=== PATIENT | male | born 1960 | race Caucasian/White ===

== ENCOUNTER 2020-05-08 16:11 | Inpatient (IN) | payer MEDICARE ==
[~2020-05-08] VITALS: Ht 172.7 cm; Wt 92.7 kg
[2020-05-08] MEDS ORDERED: ONDANSETRON 4 MG/2 ML (SDV) Z0FRAN IV PRN (17:15)
[2020-05-08] MEDS ORDERED: guaiFENesin SYRUP 100 MG/5 ML 10 ML (ROBITUSSIN SF) PO PRN (17:15)
[2020-05-08] MEDS ORDERED: CATHETER FLUSH 10 ML SYR IV PRN (20:15)
[2020-05-08] MEDS ORDERED: diphenhydrAMINE 50 MG/ML INJ (BENADRYL) IM ONE (21:30)
[2020-05-08] MEDS ORDERED: ACETAMINOPHEN 325 MG TABLET PO ONE (21:30)
--- NOTE | 2020-05-08 22:07 | Diagnostic Imaging Report ---
INDICATION: Pneumonia, Covid positive Frontal chest obtained at 09:37 p.m. There is no previous study for comparison. There is mild cardiomegaly. There is extensive infiltrate in the right upper lobe and midlung and base as well as milder infiltrate in the left base. There is no pneumothorax or pleural fluid. IMPRESSION: Cardiomegaly. Extensive right-sided infiltrates are present with milder left basilar infiltrate, compatible with pneumonia. Dictated by: Dictated on workstation # [id number]
[2020-05-08] MEDS: guaiFENesin/CODEINE (ROBITUSSIN AC) 10ML UDC PO PRN (22:45)
[2020-05-08 22:47] LABS: BASOPHILS % (AUTO) 0 % (0-10); EOSINOPHILS % (AUTO) 0 % (0-10); HEMATOCRIT 35 % (40-54); HEMOGLOBIN 11.6 g/dL (13.3-17.7); LYMPHOCYTES # (AUTO) 0.4 10^3/uL (1.0-4.0); LYMPHOCYTES % (AUTO) 11 % (12-44); MEAN CORPUSCULAR HEMOGLOBIN 30 pg (25-34); MEAN CORPUSCULAR HGB CONC 33 g/dL (32-36); MEAN CORPUSCULAR VOLUME 92 fL (80-99); MEAN PLATELET VOLUME 9.6 fL (9.0-12.2); MONOCYTES # (AUTO) 0.1 10^3/uL (0.0-1.0); MONOCYTES % (AUTO) 1 % (0-12); NEUTROPHILS # (AUTO) 3.3 10^3/uL (1.8-7.8); NEUTROPHILS % (AUTO) 87 % (42-75); PLATELET COUNT 299 10^3/uL (130-400); WHITE BLOOD COUNT 3.7 10^3/uL (4.3-11.0)
[2020-05-08 23:10] LABS: ALBUMIN 3.1 GM/DL (3.2-4.5); CHLORIDE 107 MMOL/L (98-107); POTASSIUM 3.9 MMOL/L (3.6-5.0); SODIUM 142 MMOL/L (135-145)
[2020-05-08 23:11] LABS: CALCIUM 8.2 MG/DL (8.5-10.1)
[2020-05-08 23:12] LABS: GLUCOSE 164 MG/DL (70-105); TOTAL PROTEIN 6.3 GM/DL (6.4-8.2)
[2020-05-08 23:13] LABS: CARBON DIOXIDE 24 MMOL/L (21-32)
[2020-05-08 23:14] LABS: BILIRUBIN,TOTAL 0.4 MG/DL (0.1-1.0)
[2020-05-08 23:16] LABS: ALKALINE PHOSPHATASE 84 U/L (40-136); CREATININE SERUM 0.76 MG/DL (0.60-1.30); GFR ESTIMATED > 60
[2020-05-08 23:17] LABS: BUN/CREATININE RATIO 13
[2020-05-08 23:19] LABS: ALANINE AMINOTRANSFERASE 23 U/L (0-55)
[2020-05-08] MEDS: CATHETER FLUSH 10 ML SYR IV SCH (23:43)
[2020-05-08 23:49] LABS: ABG BASE EXCESS 2.4 MMOL/L (-2.5-2.5); ABG OXYGEN SATURATION 91 % (94-100); ABG PCO2 36 MMHG (35-45); ABG PH 7.47 (7.37-7.43); ABG PO2 59 MMHG (79-93)
[2020-05-08 23:56] LABS: INSPIRED O2 10L; PATIENT TEMP NOT INDICATED; VENTILATOR NO
[2020-05-09 03:16] LABS: BASOPHILS % (AUTO) 0 % (0-10); EOSINOPHILS % (AUTO) 0 % (0-10); HEMATOCRIT 36 % (40-54); HEMOGLOBIN 11.6 g/dL (13.3-17.7); LYMPHOCYTES # (AUTO) 0.5 10^3/uL (1.0-4.0); LYMPHOCYTES % (AUTO) 11 % (12-44); MEAN CORPUSCULAR HEMOGLOBIN 30 pg (25-34); MEAN CORPUSCULAR HGB CONC 33 g/dL (32-36); MEAN CORPUSCULAR VOLUME 92 fL (80-99); MEAN PLATELET VOLUME 9.8 fL (9.0-12.2); MONOCYTES # (AUTO) 0.2 10^3/uL (0.0-1.0); MONOCYTES % (AUTO) 4 % (0-12); NEUTROPHILS # (AUTO) 3.6 10^3/uL (1.8-7.8); NEUTROPHILS % (AUTO) 84 % (42-75); PLATELET COUNT 300 10^3/uL (130-400); WHITE BLOOD COUNT 4.3 10^3/uL (4.3-11.0)
[2020-05-09 03:29] LABS: CHLORIDE 107 MMOL/L (98-107); POTASSIUM 3.9 MMOL/L (3.6-5.0); SODIUM 140 MMOL/L (135-145)
[2020-05-09 03:30] LABS: CALCIUM 8.2 MG/DL (8.5-10.1)
[2020-05-09 03:31] LABS: GLUCOSE 160 MG/DL (70-105)
[2020-05-09 03:32] LABS: CARBON DIOXIDE 22 MMOL/L (21-32)
[2020-05-09 03:34] LABS: CREATININE SERUM 0.71 MG/DL (0.60-1.30); GFR ESTIMATED > 60; PHOSPHORUS 2.3 MG/DL (2.3-4.7)
[2020-05-09 03:35] LABS: BUN/CREATININE RATIO 15
[2020-05-09 03:37] LABS: MAGNESIUM 1.8 MG/DL (1.6-2.4)
--- NOTE | 2020-05-09 04:46 | Pulmonary Consultation ---
History of Present Illness History of Present Illness Date Seen by Provider: May 09, 2020 Time Seen by Provider: 04:40 Date of Admission History of Present Illness 60yo with COVID directly admitted for [facility] directly admitted secondary to worsening SOB. He is currently requiring Vapotherm 75%. Allergies and Home Medications Allergies Coded Allergies: Penicillins (Verified Allergy, Severe, 05/08/20) Past Ilsxghf-Fkitop-Qjhkzz Hx Patient Social History Smoking Status: Never a Smoker Alcohol Use?: No Review of Systems Time Seen by Provider: 04:51 Sepsis Event Evaluation Height, Weight, BMI Height: '" Weight: lbs. oz. kg; 35.74 BMI Method: Exam Exam Vital Signs Date Time Temp Pulse Resp B/P (MAP) Pulse Ox O2 Delivery O2 Flow Rate FiO2 05/09/20 03:23 90 Vapotherm 30.00 70 05/09/20 02:00 101 32 130/80 (97) 90 Vapotherm 25.00 70.00 05/09/20 01:50 Vapotherm 25.00 70.00 05/09/20 01:21 98 05/09/20 01:00 95 32 122/79 (93) 94 Vapotherm 25.00 65.00 05/09/20 00:17 Vapotherm 25.00 65.00 05/09/20 00:13 92 Vapotherm 25.00 65 05/09/20 00:00 98 25 126/76 (93) 88 High Flow N/C 11.00 05/08/20 23:49 35.7 101 24 131/80 (97) 89 High Flow N/C 11.00 05/08/20 22:15 36.1 102 20 134/86 (102) 90 High Flow N/C 10.00 05/08/20 22:00 91 High Flow N/C 10.00 05/08/20 20:44 107 I & O 05/09/20 07:00 Intake Total 200 ml Output Total 175 ml Balance 25 ml Height & Weight Height: '" Weight: lbs. oz. kg; 35.74 BMI Method: Results Lab Laboratory Tests 05/08/20 22:30 05/09/20 03:06 Assessment/Plan Assessment/Plan Acute respiratory failure secondary to COVID 19 PNA -Currently requiring Vapotherm currently at 75% -Decadron -CVP -Does not qualify for Remdesivir -CTA - negative for PE NSTEMI -Cardiology is consulted -Currently on Heparin gtt -Change to theraputic dose lovenox -Echo ordered per EICU DDIMer is 12 -CTA is negative for PE -Will continue with theraputic anticoagulation will switch to Lovenox if ok with cardiology GI/DVT ppx FABIOLA GREENFIELD DO May 09, 2020 04:45
[2020-05-09] MEDS: morphine INJ 4 MG/ML 1 ML (VIAL/SYRINGE) IVP PRN ×3 (05:27→22:38)
[2020-05-09] MEDS: ALPRAZolam 0.5 MG (XANAX) TAB PO PRN ×2 (05:27→11:19)
[2020-05-09] MEDS: CATHETER FLUSH 10 ML SYR IV SCH ×3 (06:00→22:14)
[2020-05-09] MEDS: MAGNESIUM 1 GM/100 ML IVPB 100 ML IV SCH (06:00)
[2020-05-09] MEDS: KCL 20 MEQ TAB (K-DUR) PO SCH (06:00)
--- NOTE | 2020-05-09 06:17 | Diagnostic Imaging Report ---
CHEST 1 VIEW, AP/PA ONLY Indication: Covid-19 pneumonia. Comparison: 05/08/2020 Findings: Scattered consolidations in both lungs are unchanged and remain most confluent in the right upper lobe. No pleural effusion or pneumothorax. Stable cardiomediastinal silhouette. Impression: 1. No change in pulmonary consolidations that are most consistent with history of Covid-19 pneumonia. Dictated by: Dictated on workstation # [id number]
[2020-05-09] MEDS: POTASSIUM CL 10MEQ/50ML IVPB 50 ML IV SCH (06:28)
[2020-05-09] MEDS: guaiFENesin/CODEINE (ROBITUSSIN AC) 10ML UDC PO PRN ×2 (07:53→22:38)
[2020-05-09] MEDS: FAMOTIDINE 20MG/2ML IV (PEPCID) IV SCH ×2 (07:53→20:08)
[2020-05-09] MEDS: dexAMETHasone 6 MG TAB (DECADRON) PO SCH (07:53)
[2020-05-09] MEDS ORDERED: SODIUM PHOSPHATE INJ 30 MM in NS (IVPB) 250 ML INJ ONE (08:00)
--- NOTE | 2020-05-09 08:48 | Consultation-Cardiology ---
HPI-Cardiology Cardiology Consultation Date of Consultation 05/09/20 Date of Admission Time Seen by Provider: 08:43 Indication: elevated troponin level HPI 60 years old gentleman was admitted through [place] emergency room with acute respiratory failure, patient was requiring 15 L of oxygen, noted to have elevated troponin level. Denied any chest pain. Currently on Vapotherm 70 percent, overnight did not have any chest pain, still having elevation in troponin level. EKG did not show any acute changes Home Medications & Allergies Allergies: Coded Allergies: Penicillins (Verified Allergy, Severe, 05/08/20) Home Medication List Reviewed: Yes RBE-Wukdln-Ipouse Hx Patient Social History Smoking Status: Never a Smoker Alcohol Use?: No Review of Systems-General Review of Systems Constitutional: fever, malaise Respiratory: see HPI, cough, dyspnea on exertion, short of breath Cardiovascular: see HPI; No chest pain, No edema, No Hx of Intervention, No palpitations, No syncope, No vascular heart diseas, No other Gastrointestinal: see HPI Genitourinary: see HPI Musculoskeletal: see HPI Skin: see HPI Psychiatric/Neurological: See HPI Reviewed Test Results Reviewed Test Results Lab Laboratory Tests Test 05/08/20 22:30 05/08/20 23:22 05/09/20 03:06 Range/Units White Blood Count 3.7 L 4.3 4.3-11.0 10^3/uL Red Blood Count 3.87 L 3.88 L 4.30-5.52 10^6/uL Hemoglobin 11.6 L 11.6 L 13.3-17.7 g/dL Hematocrit 35 L 36 L 40-54 % Mean Corpuscular Volume 92 92 80-99 fL Mean Corpuscular Hemoglobin 30 30 25-34 pg Mean Corpuscular Hemoglobin Concent 33 33 32-36 g/dL Red Cell Distribution Width 12.5 12.4 10.0-14.5 % Platelet Count 299 300 130-400 10^3/uL Mean Platelet Volume 9.6 9.8 9.0-12.2 fL Immature Granulocyte % (Auto) 1 1 % Neutrophils (%) (Auto) 87 H 84 H 42-75 % Lymphocytes (%) (Auto) 11 L 11 L 12-44 % Monocytes (%) (Auto) 1 4 0-12 % Eosinophils (%) (Auto) 0 0 0-10 % Basophils (%) (Auto) 0 0 0-10 % Neutrophils # (Auto) 3.3 3.6 1.8-7.8 10^3/uL Lymphocytes # (Auto) 0.4 L 0.5 L 1.0-4.0 10^3/uL Monocytes # (Auto) 0.1 0.2 0.0-1.0 10^3/uL Eosinophils # (Auto) 0.0 0.0 0.0-0.3 10^3/uL Basophils # (Auto) 0.0 0.0 0.0-0.1 10^3/uL Immature Granulocyte # (Auto) 0.0 0.0 0.0-0.1 10^3/uL D-Dimer 12.34 H 0.00-0.49 UG/ML Sodium Level 142 140 135-145 MMOL/L Potassium Level 3.9 3.9 3.6-5.0 MMOL/L Chloride Level 107 107 98-107 MMOL/L Carbon Dioxide Level 24 22 21-32 MMOL/L Anion Gap 11 11 5-14 MMOL/L Blood Urea Nitrogen 10 11 7-18 MG/DL Creatinine 0.76 0.71 0.60-1.30 MG/DL Estimat Glomerular Filtration Rate > 60 > 60 BUN/Creatinine Ratio 13 15 Glucose Level 164 H 160 H 70-105 MG/DL Lactic Acid Level 1.35 0.50-2.00 MMOL/L Calcium Level 8.2 L 8.2 L 8.5-10.1 MG/DL Corrected Calcium 8.9 8.5-10.1 MG/DL Total Bilirubin 0.4 0.1-1.0 MG/DL Aspartate Amino Transf (AST/SGOT) 27 5-34 U/L Alanine Aminotransferase (ALT/SGPT) 23 0-55 U/L Alkaline Phosphatase 84 40-136 U/L Troponin I 0.893 *H 0.723 *H <0.028 NG/ML Total Protein 6.3 L 6.4-8.2 GM/DL Albumin 3.1 L 3.2-4.5 GM/DL Procalcitonin 0.11 H <0.10 NG/ML Blood Gas Puncture Site UNK Blood Gas Patient Temperature NOT INDICATED Arterial Blood pH 7.47 H 7.37-7.43 Arterial Blood Partial Pressure CO2 36 35-45 MMHG Arterial Blood Partial Pressure O2 59 L 79-93 MMHG Arterial Blood HCO3 26 23-27 MMOL/L Arterial Blood Total CO2 27.0 21.0-31.0 MMOL/L Arterial Blood Oxygen Saturation 91 L 94-100 % Arterial Blood Base Excess 2.4 -2.5-2.5 MMOL/L Cy Test NA Blood Gas Ventilator Setting NO Blood Gas Inspired Oxygen 10L Phosphorus Level 2.3 2.3-4.7 MG/DL Magnesium Level 1.8 1.6-2.4 MG/DL B-Type Natriuretic Peptide 136.0 H <100.0 PG/ML Physical Exam Physical Exam Vital Signs Vital Signs - First Documented 05/08/20 05/08/20 05/08/20 05/09/20 20:44 22:00 22:15 00:13 Temp 36.1 Pulse 107 Resp 20 B/P (MAP) 134/86 (102) Pulse Ox 91 O2 Delivery High Flow N/C O2 Flow Rate 10.00 FiO2 65 Capillary Refill : Height, Weight, BMI Height: '" Weight: lbs. oz. kg; 35.74 BMI Method: General Appearance: WD/WN, Mild Distress Neck: Normal Inspection Respiratory: Chest Non Tender Cardiovascular: Regular Rate, Rhythm Back: Normal Inspection Extremity: Normal Inspection Neurologic/Psychiatric: Alert, No Motor/Sensory Deficits A/P-Cardiology Admission Diagnosis Acute respiratory failure COVID-19 pneumonia Type II myocardial infarction Frequent PVCs Assessment/Plan Acute respiratory failure secondary to COVID-19 pneumonia, requiring high flow oxygen with 75 percent Vapotherm, started on Decadron, did not qualify for Remdisivir. CTA of the chest was negative, managed by Dr. Avalos Elevation in troponin level, no acute EKG changes or chest pain. Probably type II myocardial infarction secondary to hypoxemia and respiratory failure. Continue to monitor the trend, continue anticoagulation and changing heparin to Lovenox, add aspirin 81 mg daily and monitor Elevation in d-dimer, CT of the chest was negative, maintained on Lovenox Frequent premature ventricular contractions. I will start low-dose beta blockers and evaluate tolerance and response RADHA BLACK MD May 09, 2020 08:48
[2020-05-09] MEDS ORDERED: REMDESIVIR INJ 200 MG in NS (IVPB) 210 ML IV ONE (09:00)
[2020-05-09] MEDS: meTOprolol TARTRATE 25 MG (LOPRESSOR) TABLET PO SCH ×2 (09:41→20:08)
[2020-05-09] MEDS: ASPIRIN 81 MG CHEW (CHILDREN'S ASA) PO SCH (09:41)
[2020-05-09] MEDS: ENOXAPARIN 100 MG/1 ML (LOVENOX) SYR SC SCH ×2 (09:41→20:09)
[2020-05-09 11:15] VITALS: BP 149/93
[2020-05-09 11:20] VITALS: BP 152/92
[2020-05-09 11:30] VITALS: BP 158/96
[2020-05-09] MEDS ORDERED: CHOL10007 PO (11:54)
[2020-05-09] MEDS ORDERED: ASCO-262 PO (11:54)
[2020-05-09] MEDS ORDERED: IBUP-30 PO (11:54)
[2020-05-09] MEDS ORDERED: ACET-2267 PO (11:54)
[2020-05-09] MEDS ORDERED: PROM5SYR PO (11:54)
[2020-05-09] MEDS ORDERED: HYDR-3820 PO (11:54)
[2020-05-09] MEDS ORDERED: ALPR2TAB6 PO (11:54)
--- NOTE | 2020-05-09 11:56 | NUR ---
SPOKE WITH THE PT (CALLED HIS CELL) AND WENT THRU THE EXT MED HISTORY TO COMPLETE THE MED REC PT WAS ABLE TO NAME HIS HOME MEDICATIONS AND TELL ME HOW/WHEN HE TAKES EACH OTC MEDS: VIT D VIT C IBUPROFEN 200MG- ACCORDING TO THE PT HE TAKES 800MG Q 8 H PRN TYLENOL 500MG- ACCORDING TO THE PT HE TAKES 1000MG Q 4 H PRN
--- NOTE | 2020-05-09 12:00 | NUR ---
Report given to Erin at this time. Patient tolerated room transfer well. VSS. Pt belongings at bedside.
[2020-05-09 12:30] VITALS: BP 129/89
--- NOTE | 2020-05-09 15:27 | NUR ---
"RD ASSESSMENT PMHx: unknown PMH PT INTERACTION: Received dietary consult for MST score. Note pt is currently in COVID isolation per chart review. Note all diet information for nutrition consult is per Sharon RN, or per chart review. Sharon states current appetite appears okay. Note avg PO intake 25% x2meal, per chart review. Sharon states no issues with nausea, vomiting, constipation, or diarrhea that she is aware of. Note no BM has been recorded, and pt not currently on bowel regimen per chart review. Note unable to determine recent wt hx, per chart review. Note unable to complete visual assessment d/t isolation precautions. Note BMI of 35.6 (Obese class II for age). Given PO intake, wt hx, and visual assessment, it is difficult to determine if pt meets criteria for malnutrition per ASPEN guidelines. Note abnormal lab values of glu 160 H, and Ca 8.2 L, per chart review. Est. kcal needs: 8857-3079 kcal | 15-18 kcal/kg Est. Pro needs: 85-106 g Pro | 0.8-1.0 g Pro/kg PES STATEMENT: Inadequate oral intake (NI-2.1) related to loss of appetite, as evidenced by chart review, communication with RN, and avg PO intake 25% x2meal. INTERVENTION: Continue with current diet order of Heart Healthy diet. Pt may benefit from nutrition supplementation as PO intake is low. Would encourage pt to eat when able. Will continue to follow and reassess as pt needs, intake, and status change. Magen MELENDEZ, MS RD [phone] cell"
[2020-05-09] MEDS: ACETAMINOPHEN 325 MG TABLET PO PRN (17:19)
[2020-05-10 03:45] LABS: BASOPHILS % (AUTO) 0 % (0-10); EOSINOPHILS % (AUTO) 0 % (0-10); HEMATOCRIT 36 % (40-54); HEMOGLOBIN 11.7 g/dL (13.3-17.7); LYMPHOCYTES # (AUTO) 0.8 10^3/uL (1.0-4.0); LYMPHOCYTES % (AUTO) 10 % (12-44); MEAN CORPUSCULAR HEMOGLOBIN 30 pg (25-34); MEAN CORPUSCULAR HGB CONC 33 g/dL (32-36); MEAN CORPUSCULAR VOLUME 91 fL (80-99); MEAN PLATELET VOLUME 9.9 fL (9.0-12.2); MONOCYTES # (AUTO) 0.5 10^3/uL (0.0-1.0); MONOCYTES % (AUTO) 6 % (0-12); NEUTROPHILS % (AUTO) 83 % (42-75); PLATELET COUNT 366 10^3/uL (130-400); WHITE BLOOD COUNT 8.4 10^3/uL (4.3-11.0)
[2020-05-10 04:07] LABS: CHLORIDE 111 MMOL/L (98-107); POTASSIUM 3.8 MMOL/L (3.6-5.0); SODIUM 147 MMOL/L (135-145)
[2020-05-10 04:08] LABS: CALCIUM 8.5 MG/DL (8.5-10.1); GLUCOSE 122 MG/DL (70-105)
[2020-05-10 04:10] LABS: CARBON DIOXIDE 23 MMOL/L (21-32)
[2020-05-10 04:12] LABS: CREATININE SERUM 0.76 MG/DL (0.60-1.30); GFR ESTIMATED > 60; PHOSPHORUS 2.6 MG/DL (2.3-4.7)
[2020-05-10 04:13] LABS: BUN/CREATININE RATIO 20
[2020-05-10 04:15] LABS: MAGNESIUM 2.1 MG/DL (1.6-2.4)
--- NOTE | 2020-05-10 05:19 | Pulmonary Progress Note ---
Subjective Time Seen by a Provider: 05:15 Subjective/Events-last exam Pt is still requiring Vapotherm Sepsis Event Evaluation Height, Weight, BMI Height: '" Weight: lbs. oz. kg; 35.74 BMI Method: Focused Exam Lactate Level 05/08/20 22:30: Lactic Acid Level 1.35 Exam Exam Vital Signs Date Time Temp Pulse Resp B/P (MAP) Pulse Ox O2 Delivery O2 Flow Rate FiO2 05/10/20 04:00 96 18 130/108 (115) 92 Vapotherm 25.00 70.00 05/10/20 02:01 96 Vapotherm 30.00 60 05/10/20 00:30 93 05/09/20 23:03 36.2 97 21 149/106 (120) 94 Vapotherm 25.00 70.00 05/09/20 22:08 96 Vapotherm 30.00 75 05/09/20 21:00 92 Vapotherm 25.00 70 05/09/20 19:20 36.1 101 22 141/89 (106) 93 Vapotherm 25.00 70.00 05/09/20 19:15 90 Vapotherm 30.00 70 05/09/20 19:00 100 05/09/20 16:01 36.4 104 23 133/77 (95) 90 Vapotherm 25.00 70.00 05/09/20 14:32 92 Vapotherm 25.00 70 05/09/20 12:47 104 05/09/20 12:30 37.1 100 12 129/89 91 Vapotherm 25.00 70 05/09/20 12:00 36.9 Vapotherm 25.00 70.00 05/09/20 11:30 109 8 158/96 92 Vapotherm 25.00 70 05/09/20 11:20 37.0 108 10 152/92 91 Vapotherm 25.00 70 05/09/20 11:15 36.7 100 14 149/93 91 Vapotherm 25.00 70 05/09/20 10:28 92 Vapotherm 25.00 70 05/09/20 09:00 92 Vapotherm 70 05/09/20 08:14 37.0 Vapotherm 25.00 70.00 05/09/20 08:00 109 25 148/85 (106) 95 Vapotherm 25.00 70.00 05/09/20 06:44 102 05/09/20 06:42 94 Vapotherm 25.00 70 05/09/20 06:00 101 16 136/75 (95) 93 Vapotherm 25.00 70.00 I & O 05/10/20 07:00 Intake Total 1400 ml Output Total 2540 ml Balance -1140 ml Height & Weight Height: '" Weight: lbs. oz. kg; 35.74 BMI Method: General Appearance: WD/WN, Mild Distress Neck: Normal Inspection Respiratory: Chest Non Tender Cardiovascular: Regular Rate, Rhythm Extremity: Normal Inspection Neurologic/Psychiatric: Alert, No Motor/Sensory Deficits Results Lab Laboratory Tests 05/08/20 22:30 05/09/20 03:06 05/10/20 03:20 Assessment/Plan Assessment/Plan Acute respiratory failure secondary to COVID 19 PNA -Currently requiring Vapotherm currently at 60% -Decadron -CVP -Does not qualify for Remdesivir -CTA - negative for PE -Give 20mg of Lasix x 1 RML PNA -Start rocephin and azithromycin -Repeat PCT NSTEMI -Cardiology is consulted -theraputic dose lovenox -Echo ordered per EICU DDIMer is 12 -CTA is negative for PE -Will continue with theraputic anticoagulation will switch to Lovenox if ok with cardiology GI/DVT ppx FABIOLA GREENFIELD DO May 10, 2020 05:19
[2020-05-10] MEDS ORDERED: FUROSEMIDE 40 MG/4 ML INJ (LASIX) IVP ONE (05:30)
[2020-05-10] MEDS: POTASSIUM CL 10MEQ/50ML IVPB 50 ML IV SCH ×4 (05:39→07:31)
[2020-05-10] MEDS ORDERED: WATER (STERILE) FOR INJECTION 10 ML ONE (05:42)
[2020-05-10] MEDS ORDERED: cefTRIAXone 1,000 MG IV (ROCEPHIN) VIAL ONE (05:42)
[2020-05-10] MEDS: cefTRIAXone FOR IV USE 1,000 MG in WATER (STERILE) FOR INJECTION 10 ML IV SCH (05:55)
[2020-05-10] MEDS: IBUPROFEN TABLET 200 MG TAB PO PRN ×3 (05:56→13:58)
[2020-05-10] MEDS ORDERED: AZITHROMYCIN INJECTION 500 MG in NS (IVPB) 250 ML IV ONE (06:30)
[2020-05-10] MEDS: KCL 20 MEQ TAB (K-DUR) PO SCH (06:33)
[2020-05-10] MEDS: MAGNESIUM 1 GM/100 ML IVPB 100 ML IV SCH (06:33)
[2020-05-10] MEDS: CATHETER FLUSH 10 ML SYR IV SCH ×3 (06:34→20:50)
[2020-05-10] MEDS ORDERED: NS IV 500 ML 500 ML ONE (07:33)
[2020-05-10] MEDS: dexAMETHasone 6 MG TAB (DECADRON) PO SCH (08:31)
[2020-05-10] MEDS: FAMOTIDINE 20MG/2ML IV (PEPCID) IV SCH ×2 (08:32→20:47)
[2020-05-10] MEDS: ASPIRIN 81 MG CHEW (CHILDREN'S ASA) PO SCH (08:32)
[2020-05-10] MEDS: meTOprolol TARTRATE 25 MG (LOPRESSOR) TABLET PO SCH ×2 (08:32→20:48)
[2020-05-10] MEDS: ENOXAPARIN 100 MG/1 ML (LOVENOX) SYR SC SCH ×2 (08:32→20:48)
[2020-05-10] MEDS: ALPRAZolam 0.5 MG (XANAX) TAB PO PRN ×2 (08:43→20:48)
[2020-05-10] MEDS ORDERED: REMDESIVIR INJ 100 MG in NS (IVPB) 230 ML IV SCH (09:00)
--- NOTE | 2020-05-10 09:55 | NUR ---
Initial visit and referral: RN stated pt was expressing fear. Pt was resting in bed with eyes open, appearing tearful. Bibwilliam noted at bedside (which belonged to his grandmother). He said he has been sick with COVID-19 since before Susan, but feels grateful that his has remained asymptomatic. 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 This visit he verbalized a resilient juan and openness to people of all denominations. Throughout our visit, he demonstrated increased calmness, an ability to draw from his personal juan to self-encourage, and he communicated a welcoming, compassionate attitude toward staff. Jukebox Route Driver offered prayer and welcomed the pt to pray. He thanked God for our visit and listed various blessings in his life including relationships, situations, and his hope-giving beliefs in God. Before concluding our visit, the pt requested a refill of water and stated he is used to drinking water throughout the day. This Jukebox Route Driver provided the pt with requested water with the help of fire tender, Kenyatta Gutiérrez. Jukebox Route Driver also facilitated communication with RN by relaying pt's questions about his medications. The RN said the pt's son just called her and stated he was trying to reach the pt who was not answering his phone. This Jukebox Route Driver notified the pt that his son was attempting to call his cell phone. Pt was on the phone with his son before our visit concluded.
--- NOTE | 2020-05-10 11:23 | Cardiology Progress Note ---
Subjective Date Seen by Provider: May 10, 2020 Time Seen by Provider: 10:55 Subjective/Events-last exam Patient in bed, c/p fatigue and dyspnea. Denies any chest pain Focused Exam Lactate Level 05/08/20 22:30: Lactic Acid Level 1.35 Objective-Cardiology Exam Last Set of Vital Signs Vital Signs 05/10/20 05/10/20 05/10/20 10:07 12:01 12:28 Temp 36.0 Pulse 94 Resp 12 B/P (MAP) 143/98 (113) Pulse Ox 90 O2 Delivery Vapotherm O2 Flow Rate 25.00 50.00 FiO2 50 Capillary Refill : I&O Intake and Output 05/10/20 00:00 Intake Total 1800 ml Output Total 2490 ml Balance -690 ml Intake Oral 1550 ml IV Total 250 ml Output Urine Total 2490 ml Daily Weight Change No General: Alert, Oriented X3, Cooperative HEENT: Atraumatic, PERRLA Neck: Supple, No JVD, No Thyromegaly Lungs: Other (decreased breath sounds) Heart: Regular Rate Abdomen: Normal Bowel Sounds, Soft Skin: No Rashes Neuro: Normal Speech Psych/Mental Status: Mental Status NL Results Lab Laboratory Tests 05/10/20 03:20 A/P-Cardiology Admission Diagnosis Acute respiratory failure COVID-19 pneumonia Type II myocardial infarction Frequent PVCs Assessment/Plan Acute respiratory failure secondary to COVID-19 pneumonia, requiring high flow oxygen with 75 percent Vapotherm, started on Decadron, did not qualify for Remdisivir. CTA of the chest was negative, managed by Dr. Avalos Elevation in troponin level, no acute EKG changes or chest pain. Probably type II myocardial infarction secondary to hypoxemia and respiratory failure. Continue to monitor the trend, continue on ASA Elevation in d-dimer, CT of the chest was negative, maintained on Lovenox Frequent premature ventricular contractions. Started on low dose beta chante. Continue to monitor. Patient was evaluated with Zoraida, management plan was discussed, agree with the current scribed note, I made few changes to the note using Italic font Patient is laying down in bed, reported that he was feeling better, breathing better but still on Vapotherm 75 percent Troponin level is trending down, maintained on aspirin and Lovenox Having frequent premature ventricular contractions, started on low-dose beta blockers and tolerating it well. I will repeat troponin in the morning and continue to monitor the trend ZORAIDA HAMILTON May 10, 2020 11:23 RADHA BLACK MD May 10, 2020 14:03
[2020-05-10] MEDS: morphine INJ 4 MG/ML 1 ML (VIAL/SYRINGE) IVP PRN (20:58)
[2020-05-10] MEDS: guaiFENesin/CODEINE (ROBITUSSIN AC) 10ML UDC PO PRN (23:07)
[2020-05-11] MEDS: ACETAMINOPHEN 325 MG TABLET PO PRN (02:31)
[2020-05-11] MEDS: morphine INJ 4 MG/ML 1 ML (VIAL/SYRINGE) IVP PRN ×3 (02:41→21:38)
--- NOTE | 2020-05-11 03:52 | Pulmonary Progress Note ---
Subjective Time Seen by a Provider: 03:47 Subjective/Events-last exam No complications noted. Sepsis Event Evaluation Height, Weight, BMI Height: '" Weight: lbs. oz. kg; 35.74 BMI Method: Focused Exam Lactate Level 05/08/20 22:30: Lactic Acid Level 1.35 Exam Exam Vital Signs Date Time Temp Pulse Resp B/P (MAP) Pulse Ox O2 Delivery O2 Flow Rate FiO2 05/11/20 00:43 82 05/10/20 23:08 36.2 95 20 142/91 (108) 94 High Flow N/C 10.00 05/10/20 21:00 93 High Flow N/C 10.00 05/10/20 20:00 36.3 101 22 143/95 (111) 92 High Flow N/C 10.00 05/10/20 19:27 94 05/10/20 14:30 94 High Flow N/C 10.00 05/10/20 12:28 94 05/10/20 12:01 36.0 105 12 143/98 (113) 90 Vapotherm 25.00 50.00 05/10/20 10:07 94 Vapotherm 25.00 50 05/10/20 09:00 89 Vapotherm 30.00 60 05/10/20 07:11 94 Vapotherm 30.00 60 05/10/20 06:47 88 05/10/20 04:00 96 18 130/108 (115) 92 Vapotherm 25.00 70.00 I & O 05/11/20 07:00 Intake Total 1250 ml Output Total 2200 ml Balance -950 ml Height & Weight Height: '" Weight: lbs. oz. kg; 35.74 BMI Method: General Appearance: WD/WN, Mild Distress Neck: Normal Inspection Respiratory: Chest Non Tender Cardiovascular: Regular Rate, Rhythm Extremity: Normal Inspection Neurologic/Psychiatric: Alert, No Motor/Sensory Deficits Results Lab Laboratory Tests 05/10/20 03:20 Assessment/Plan Assessment/Plan Acute respiratory failure secondary to COVID 19 PNA -Currently requiring Vapotherm currently at 60% -Change 10 liter high flow NC back to Vapotherm. -give Lasix 40mg IV x 1 -Decadron -CVP -Does not qualify for Remdesivir -CTA - negative for PE -Give 20mg of Lasix x 1 HTN -Increase Lopressor to 25mg BID -Add Lisinopril 10mg daily RML PNA per CXR -rocephin and azithromycin -Repeat PCT NSTEMI -Cardiology is consulted -theraputic dose lovenox -Echo ordered per EICU DDIMer is 12 -CTA is negative for PE -Will continue with theraputic anticoagulation will switch to Lovenox if ok with cardiology GI/DVT ppx FABIOLA GREENFIELD DO May 11, 2020 03:52
[2020-05-11 04:03] LABS: BASOPHILS % (AUTO) 0 % (0-10); EOSINOPHILS % (AUTO) 0 % (0-10); HEMATOCRIT 35 % (40-54); HEMOGLOBIN 11.3 g/dL (13.3-17.7); LYMPHOCYTES # (AUTO) 0.8 10^3/uL (1.0-4.0); LYMPHOCYTES % (AUTO) 13 % (12-44); MEAN CORPUSCULAR HEMOGLOBIN 29 pg (25-34); MEAN CORPUSCULAR HGB CONC 32 g/dL (32-36); MEAN CORPUSCULAR VOLUME 91 fL (80-99); MEAN PLATELET VOLUME 10.1 fL (9.0-12.2); MONOCYTES # (AUTO) 0.5 10^3/uL (0.0-1.0); MONOCYTES % (AUTO) 8 % (0-12); NEUTROPHILS # (AUTO) 5.1 10^3/uL (1.8-7.8); NEUTROPHILS % (AUTO) 79 % (42-75); PLATELET COUNT 356 10^3/uL (130-400); WHITE BLOOD COUNT 6.4 10^3/uL (4.3-11.0)
[2020-05-11 04:13] LABS: CHLORIDE 109 MMOL/L (98-107); SODIUM 143 MMOL/L (135-145)
[2020-05-11 04:14] LABS: CALCIUM 8.3 MG/DL (8.5-10.1)
[2020-05-11 04:15] LABS: GLUCOSE 117 MG/DL (70-105)
[2020-05-11 04:16] LABS: CARBON DIOXIDE 23 MMOL/L (21-32)
[2020-05-11 04:19] LABS: CREATININE SERUM 0.77 MG/DL (0.60-1.30); GFR ESTIMATED > 60; PHOSPHORUS 3.1 MG/DL (2.3-4.7)
[2020-05-11] MEDS: POTASSIUM CL 10MEQ/50ML IVPB 50 ML IV SCH (04:19)
[2020-05-11 04:20] LABS: BUN/CREATININE RATIO 19
[2020-05-11] MEDS: KCL 20 MEQ TAB (K-DUR) PO SCH (04:20)
[2020-05-11 04:21] LABS: MAGNESIUM 1.9 MG/DL (1.6-2.4)
[2020-05-11] MEDS: MAGNESIUM 1 GM/100 ML IVPB 100 ML IV SCH (04:22)
[2020-05-11] MEDS: cefTRIAXone FOR IV USE 1,000 MG in WATER (STERILE) FOR INJECTION 10 ML IV SCH (05:14)
[2020-05-11] MEDS: ALPRAZolam 0.5 MG (XANAX) TAB PO PRN (05:14)
[2020-05-11] MEDS: CATHETER FLUSH 10 ML SYR IV SCH ×3 (05:15→21:02)
[2020-05-11] MEDS: IBUPROFEN TABLET 200 MG TAB PO PRN (06:43)
[2020-05-11] MEDS ORDERED: KCL 20 MEQ TAB (K-DUR) PO ONE (08:00)
[2020-05-11] MEDS: FAMOTIDINE 20MG/2ML IV (PEPCID) IV SCH ×2 (08:31→20:55)
[2020-05-11] MEDS: FUROSEMIDE 40 MG/4 ML INJ (LASIX) IVP SCH (08:31)
[2020-05-11] MEDS: dexAMETHasone 6 MG TAB (DECADRON) PO SCH (08:32)
[2020-05-11] MEDS: ASPIRIN 81 MG CHEW (CHILDREN'S ASA) PO SCH (08:32)
[2020-05-11] MEDS: lisINopril 10 MG (PRINIVIL) TABLET PO SCH (08:33)
[2020-05-11] MEDS: meTOprolol TARTRATE 25 MG (LOPRESSOR) TABLET PO SCH ×2 (08:33→20:55)
[2020-05-11] MEDS: ENOXAPARIN 100 MG/1 ML (LOVENOX) SYR SC SCH ×2 (08:33→20:56)
[2020-05-11] MEDS: AZITHROMYCIN INJECTION 250 MG in NS (IVPB) 250 ML IV SCH (08:34)
--- NOTE | 2020-05-11 09:23 | Cardiology Progress Note ---
Subjective Date Seen by Provider: May 11, 2020 Time Seen by Provider: 09:22 Subjective/Events-last exam patient was seen and evaluated, still complaining of right-sided chest pain mainly pleuritic with deep inspiration, still on Vapotherm 60 percent Review of Systems General: No Chills, No Night Sweats; Fatigue, Malaise; No Appetite, No Other HEENT: No Head Aches, No Visual Changes, No Eye Pain, No Ear Pain, No Dysphasia, No Sinus Congestion, No Post Nasal Drip, No Sore Throat, No Other Pulmonary: Dyspnea, Cough; No Pleuritic Chest Pain, No Other Cardiovascular: Chest Pain; No: Palpitations, Orthopnea, Paroxysmal Noc. Dyspnea, Edema, Lt Headedness, Other Focused Exam Lactate Level 05/08/20 22:30: Lactic Acid Level 1.35 Objective-Cardiology Exam Last Set of Vital Signs Vital Signs 05/11/20 05/11/20 06:55 07:50 Temp 36.9 Pulse 65 Resp 18 B/P (MAP) 148/64 (92) Pulse Ox 93 O2 Delivery Vapotherm O2 Flow Rate 25.00 60.00 FiO2 60 Capillary Refill : I&O Intake and Output 05/11/20 00:00 Intake Total 1250 ml Output Total 2600 ml Balance -1350 ml Intake Oral 1250 ml Output Urine Total 2600 ml # Bowel Movements 3 General: Alert, Oriented X3, Cooperative HEENT: Atraumatic, PERRLA Neck: Supple, No JVD, No Thyromegaly Lungs: Other (decreased breath sounds) Heart: Regular Rate Abdomen: Normal Bowel Sounds, Soft Skin: No Rashes Neuro: Normal Speech Psych/Mental Status: Mental Status NL Results Lab Laboratory Tests 05/11/20 03:35 A/P-Cardiology Admission Diagnosis Acute respiratory failure COVID-19 pneumonia Type II myocardial infarction Frequent PVCs Assessment/Plan Acute respiratory failure secondary to COVID-19 pneumonia, requiring high flow oxygen with 60 percent Vapotherm, managed by Dr. Avalos Chest pain nonspecific etiology appeared to be pleuritic in nature. Continue to monitor Elevation in troponin level, no acute EKG changes or chest pain. Probably type II myocardial infarction secondary to hypoxemia and respiratory failure. Continue to monitor the trend, continue on ASA Frequent PVCs, ventricular trigeminy noted on EKG. Currently improved, probably secondary to hypoxemia. Continue to monitor Elevation in d-dimer, CT of the chest was negative, maintained on Lovenox RADHA BLACK MD May 11, 2020 09:23
[2020-05-12] MEDS: morphine INJ 4 MG/ML 1 ML (VIAL/SYRINGE) IVP PRN (01:53)
[2020-05-12 04:20] LABS: BASOPHILS % (AUTO) 0 % (0-10); EOSINOPHILS % (AUTO) 0 % (0-10); HEMATOCRIT 40 % (40-54); HEMOGLOBIN 12.6 g/dL (13.3-17.7); LYMPHOCYTES # (AUTO) 1.2 10^3/uL (1.0-4.0); LYMPHOCYTES % (AUTO) 18 % (12-44); MEAN CORPUSCULAR HEMOGLOBIN 29 pg (25-34); MEAN CORPUSCULAR HGB CONC 32 g/dL (32-36); MEAN CORPUSCULAR VOLUME 91 fL (80-99); MEAN PLATELET VOLUME 10.1 fL (9.0-12.2); MONOCYTES # (AUTO) 0.6 10^3/uL (0.0-1.0); MONOCYTES % (AUTO) 9 % (0-12); NEUTROPHILS # (AUTO) 4.8 10^3/uL (1.8-7.8); NEUTROPHILS % (AUTO) 72 % (42-75); PLATELET COUNT 406 10^3/uL (130-400); WHITE BLOOD COUNT 6.7 10^3/uL (4.3-11.0)
[2020-05-12 04:37] LABS: BUN/CREATININE RATIO 20; CALCIUM 9.3 MG/DL (8.5-10.1); CARBON DIOXIDE 25 MMOL/L (21-32); CHLORIDE 105 MMOL/L (98-107); CREATININE SERUM 0.85 MG/DL (0.60-1.30); GFR ESTIMATED > 60; GLUCOSE 117 MG/DL (70-105); MAGNESIUM 1.9 MG/DL (1.6-2.4); PHOSPHORUS 3.5 MG/DL (2.3-4.7); POTASSIUM 4.1 MMOL/L (3.6-5.0); SODIUM 142 MMOL/L (135-145)
[2020-05-12] MEDS: cefTRIAXone FOR IV USE 1,000 MG in WATER (STERILE) FOR INJECTION 10 ML IV SCH (05:09)
[2020-05-12] MEDS: CATHETER FLUSH 10 ML SYR IV SCH ×3 (05:10→20:20)
[2020-05-12] MEDS: POTASSIUM CL 10MEQ/50ML IVPB 50 ML IV SCH (05:10)
[2020-05-12] MEDS: MAGNESIUM 1 GM/100 ML IVPB 100 ML IV SCH (05:10)
[2020-05-12] MEDS: KCL 20 MEQ TAB (K-DUR) PO SCH (05:10)
--- NOTE | 2020-05-12 08:01 | Diagnostic Imaging Report ---
EXAMINATION: Chest 1 view HISTORY: COVID positive. Followup. COMPARISON: 05/09/2020. FINDINGS: Stable patchy and consolidative opacities are seen throughout the lungs, greatest in the right mid and lower lung. No large pleural effusion or pneumothorax. Stable prominent cardiac silhouette. IMPRESSION: 1. Stable chest with stable patchy opacities throughout the lungs, greatest on the right. Dictated by: Dictated on workstation # [id number]
[2020-05-12] MEDS: FAMOTIDINE 20MG/2ML IV (PEPCID) IV SCH ×2 (09:50→20:19)
[2020-05-12] MEDS: FUROSEMIDE 40 MG/4 ML INJ (LASIX) IVP SCH (09:50)
[2020-05-12] MEDS: dexAMETHasone 6 MG TAB (DECADRON) PO SCH (09:51)
[2020-05-12] MEDS: ASPIRIN 81 MG CHEW (CHILDREN'S ASA) PO SCH (09:51)
[2020-05-12] MEDS: meTOprolol TARTRATE 25 MG (LOPRESSOR) TABLET PO SCH ×2 (09:51→20:18)
[2020-05-12] MEDS: lisINopril 10 MG (PRINIVIL) TABLET PO SCH (09:51)
[2020-05-12] MEDS: ENOXAPARIN 100 MG/1 ML (LOVENOX) SYR SC SCH ×2 (09:52→20:18)
[2020-05-12] MEDS: AZITHROMYCIN INJECTION 250 MG in NS (IVPB) 250 ML IV SCH (09:53)
--- NOTE | 2020-05-12 14:12 | Cardiology Progress Note ---
Cardiology SOAP Progress Note Subjective: No significant cardiac complaints. Objective: I&O/Vital Signs 05/14/20 05/14/20 05/14/20 05/14/20 06:00 07:00 07:00 07:51 Temp 36.9 Pulse 74 68 55 Resp 20 32 B/P (MAP) 87/66 (73) 97/59 (72) Pulse Ox 95 98 O2 Delivery Vapotherm Vapotherm O2 Flow Rate 35.00 35.00 90.00 90.00 05/14/20 05/14/20 05/14/20 05/14/20 08:00 08:08 08:50 09:00 Pulse 53 101 Resp 27 24 B/P (MAP) 101/63 (76) 98/64 (75) Pulse Ox 98 98 96 93 O2 Delivery Vapotherm Vapotherm Vapotherm Vapotherm O2 Flow Rate 35.00 35.00 35.00 35.00 70.00 70.00 FiO2 85 85 05/14/20 05/14/20 05/14/20 05/14/20 09:28 10:00 11:00 11:45 Temp 36.9 36.6 Pulse 80 96 57 Resp 27 B/P (MAP) 101/63 95/69 (78) 109/64 (79) Pulse Ox 96 96 97 O2 Delivery Vapotherm Vapotherm O2 Flow Rate 35.00 35.00 35.00 70.00 70.00 05/14/20 05/14/20 05/14/20 05/14/20 12:00 13:00 13:00 13:53 Temp 36.9 Pulse 53 55 52 55 Resp 27 B/P (MAP) 108/65 (79) 116/70 (85) 116/70 Pulse Ox 96 94 94 O2 Delivery Vapotherm Vapotherm O2 Flow Rate 35.00 35.00 35.00 70.00 70.00 05/14/20 05/14/20 05/14/20 05/14/20 13:54 14:00 14:19 14:37 Temp 36.9 Pulse 55 57 Resp 27 25 B/P (MAP) 116/70 111/80 (90) Pulse Ox 94 97 97 O2 Delivery Vapotherm Vapotherm Vapotherm O2 Flow Rate 35.00 35.00 30.00 30.00 70.00 60.00 FiO2 60 05/14/20 05/14/20 05/14/20 05/14/20 15:00 15:21 15:58 16:00 Temp 36.0 Pulse 48 48 Resp 24 25 B/P (MAP) 115/63 (80) 124/75 (91) Pulse Ox 98 99 96 O2 Delivery Vapotherm Vapotherm Vapotherm O2 Flow Rate 30.00 30.00 30.00 60.00 50.00 FiO2 60 05/14/20 17:00 Pulse 50 Resp 28 B/P (MAP) 116/73 (87) Pulse Ox 94 O2 Delivery Vapotherm O2 Flow Rate 30.00 50.00 05/14/20 00:00 Intake Total 1150 ml Output Total 475 ml Balance 675 ml Results/Procedures: Labs Laboratory Tests 05/14/20 03:40: White Blood Count 6.7, Red Blood Count 4.33, Hemoglobin 12.4L, Hematocrit 39L, Mean Corpuscular Volume 90, Mean Corpuscular Hemoglobin 29, Mean Corpuscular Hemoglobin Concent 32, Red Cell Distribution Width 12.5, Platelet Count 418H, Mean Platelet Volume 10.5, Immature Granulocyte % (Auto) 1, Neutrophils (%) (Auto) 76H, Lymphocytes (%) (Auto) 15, Monocytes (%) (Auto) 9, Eosinophils (%) (Auto) 0, Basophils (%) (Auto) 0, Neutrophils # (Auto) 5.1, Lymphocytes # (Auto) 1.0, Monocytes # (Auto) 0.6, Eosinophils # (Auto) 0.0, Basophils # (Auto) 0.0, Immature Granulocyte # (Auto) 0.1, Sodium Level 145, Potassium Level 4.3, Chloride Level 111H, Carbon Dioxide Level 23, Anion Gap 11, Blood Urea Nitrogen 32H, Creatinine 0.93, Estimat Glomerular Filtration Rate > 60, BUN/Creatinine Ratio 34, Glucose Level 127H, Calcium Level 8.9, Phosphorus Level 3.3, Magnesium Level 2.1 Microbiology 05/08/20 MRSA Screen - Final, Complete MRSA not isolated A/P: Assessment/Dx: Acute respiratory failure COVID-19 pneumonia Type II myocardial infarction Frequent PVCs Plan: Acute respiratory failure secondary to COVID-19 pneumonia, requiring high flow oxygen with 60 percent Vapotherm, managed by Dr. Avalos Chest pain nonspecific etiology appeared to be pleuritic in nature. Continue to monitor Elevation in troponin level, no acute EKG changes or chest pain. Probably type II myocardial infarction secondary to hypoxemia and respiratory failure. Continue to monitor the trend, continue on ASA Frequent PVCs, ventricular trigeminy noted on EKG. Currently improved, probably secondary to hypoxemia. Continue to monitor Elevation in d-dimer, CT of the chest was negative, maintained on Lovenox Thank you for your consultation. Please call me if you have any questions. Nati Cuello MD, FACP, FACC, FSCAI, FHRS, CCDS Interventional Cardiology Cardiac Electrophysiology Vascular Medicine and Endovascular Interventions Leonel CUELLO MD May 12, 2020 14:12
--- NOTE | 2020-05-12 15:52 | Progress Note - Hospitalist ---
Subjective HPI/CC On Admission Date Seen by Provider: May 12, 2020 Time Seen by Provider: 14:15 Subjective/Events-last exam Patient seems a little confused today. He thinks he see me before. He does not think that he is worse. He says he is coughing up thick sputum. Otherwise he is without complaint except for being hungry. Review of Systems Pulmonary: Cough Objective Exam Vital Signs Vital Signs Date Time Temp Pulse Resp B/P (MAP) Pulse Ox O2 Delivery O2 Flow Rate FiO2 05/14/20 11:00 57 109/64 (79) 97 Vapotherm 35.00 70.00 05/14/20 09:28 36.9 27 05/14/20 08:50 85 Capillary Refill : Less Than 3 Seconds General Appearance: Chronically ill Neck: Limited Range of Motion Respiratory: No Accessory Muscle Use, Crackles, Decreased Breath Sounds Cardiovascular: Regular Rate, Rhythm Gastrointestinal: Non Tender, Soft Back: Normal Inspection Neurologic/Psychiatric: Alert, Disoriented Skin: Normal Color Results/Procedures Lab Laboratory Tests 05/14/20 03:40 Patient resulted labs reviewed. Assessment/Plan Assessment and Plan Assess & Plan/Chief Complaint Acute respiratory failure secondary to COVID 19 PNA -Currently requiring Vapotherm currently at 60% -Decadron day 3 -CVP -Does not qualify for Remdesivir -CTA - negative for PE HTN improved control Lopressor to 25mg BID Lisinopril 10mg daily RML PNA per CXR -rocephin day 3 and azithromycin day 2 -Repeat PCT NSTEMI -Cardiology is consulted -theraputic dose lovenox -Echo ordered per EICU DDIMer is 12 -CTA is negative for PE -Will continue with theraputic anticoagulation will switch to Lovenox if ok with cardiology GI/DVT ppx MEHDI CR MD May 12, 2020 15:52
[2020-05-12 16:50] LABS: ABG BASE EXCESS 3.3 MMOL/L (-2.5-2.5); ABG OXYGEN SATURATION 97 % (94-100); ABG PCO2 32 MMHG (35-45); ABG PH 7.52 (7.37-7.43); ABG PO2 78 MMHG (79-93); ABG TCO2 27.3 MMOL/L (21.0-31.0); ALLENS TEST YES-POS; INSPIRED O2 60%; PATIENT TEMP 36.4; VENTILATOR NO
--- NOTE | 2020-05-12 18:57 | NUR ---
Spoke with patients family on phone in regards to patients baseline mental status. Family states patient has been having confusion at home. Patient stated that she "wants him tested for dementia". also stated that patient called her using his personal cell phone stating he was very confused and thought he was in [place]. Patient was also trying to get ahold of a family member that has already passed. Dr Chatman Notified. Orders received.
[2020-05-12] MEDS ORDERED: HALOPERIDOL 0.5 MG (HALDOL) TAB PO PRN (19:00)
[2020-05-12 19:47] LABS: BILIRUBIN,URINE NEGATIVE (NEGATIVE); CLARITY,URINE CLEAR; COLOR,URINE YELLOW; GLUCOSE, URINE (UA) NEGATIVE (NEGATIVE); KETONES,URINE TRACE (NEGATIVE); LEUKOCYTE ESTERASE ,URINE NEGATIVE (NEGATIVE); NITRITE,URINE NEGATIVE (NEGATIVE); PROTEIN,URINE NEGATIVE (NEGATIVE)
[2020-05-12 19:52] LABS: BACTERIA,URINE TRACE /HPF; RENAL EPITHELIAL CELLS,URINE RARE /HPF; SQUAMOUS EPITHELIAL CELL,UR RARE /HPF
[2020-05-12] MEDS ORDERED: HYDROcodone/APAP 10 MG/325 MG (LORTAB) TAB PO NR (20:00)
--- NOTE | 2020-05-13 00:57 | NUR ---
PT CALLED THIS EVENING ASKING ABOUT STATUS OF PT. THIS RN REPORTED THAT HE REMAINS CONFUSED, HOWEVER DOES HAVE A SITTER AT THE BEDSIDE TO MONITOR HIS SAFETY. IS VERY CONCERNED ABOUT PT "NOT MAKING IT FROM THE COVID". THIS RN EXPLAINED THAT PT VITAL SIGNS ARE DOING WELL AND EXPLAINED THE TREATMENT FOR HIS PNA AND COVID. STATES, "I GET IT". THIS RN REQUEST SUMMARY OF CONVERSATION FROM , IS UNABLE TO PROVIDE SUMMARY. AGAIN THIS RN EXPLAINS TREATMENT PLAN C . NEEDS FURTHER EDUCATION AT THIS TIME.
[2020-05-13] MEDS: LORazepam 0.5 MG (ATIVAN) TABLET PO PRN ×2 (02:59→08:43)
[2020-05-13] MEDS: morphine INJ 4 MG/ML 1 ML (VIAL/SYRINGE) IVP PRN (02:59)
--- NOTE | 2020-05-13 03:35 | NUR ---
DR CR NOTIFIED OF PATIENT'S INCREASED CONFUSION AND HALLUCINATIONS. NEW ORDER RECEIVED FOR HALDOL 2MG IM NOW, REPEAT IF NOT EFFECTIVE IN 1 HR X1. THIS RN VERBALIZED UNDERSTANDING.
[2020-05-13] MEDS ORDERED: HALOPERIDOL 5 MG/ML (HALDOL) VIAL ONE (03:37)
[2020-05-13] MEDS ORDERED: HALOPERIDOL 5 MG/ML (HALDOL) VIAL IM ONE (04:00)
[2020-05-13] MEDS ORDERED: HALOPERIDOL 5 MG/ML (HALDOL) VIAL IM PRN (04:00)
[2020-05-13 04:25] LABS: BASOPHILS % (AUTO) 0 % (0-10); EOSINOPHILS % (AUTO) 1 % (0-10); HEMATOCRIT 43 % (40-54); HEMOGLOBIN 14.2 g/dL (13.3-17.7); LYMPHOCYTES # (AUTO) 1.2 10^3/uL (1.0-4.0); LYMPHOCYTES % (AUTO) 20 % (12-44); MEAN CORPUSCULAR HEMOGLOBIN 30 pg (25-34); MEAN CORPUSCULAR HGB CONC 33 g/dL (32-36); MEAN CORPUSCULAR VOLUME 90 fL (80-99); MEAN PLATELET VOLUME 10.3 fL (9.0-12.2); MONOCYTES # (AUTO) 0.7 10^3/uL (0.0-1.0); MONOCYTES % (AUTO) 11 % (0-12); NEUTROPHILS # (AUTO) 4.2 10^3/uL (1.8-7.8); NEUTROPHILS % (AUTO) 68 % (42-75); PLATELET COUNT 495 10^3/uL (130-400); WHITE BLOOD COUNT 6.3 10^3/uL (4.3-11.0)
[2020-05-13 04:38] LABS: CHLORIDE 105 MMOL/L (98-107); POTASSIUM 3.8 MMOL/L (3.6-5.0); SODIUM 144 MMOL/L (135-145)
[2020-05-13 04:40] LABS: CALCIUM 9.3 MG/DL (8.5-10.1); GLUCOSE 114 MG/DL (70-105)
[2020-05-13 04:42] LABS: CARBON DIOXIDE 23 MMOL/L (21-32)
[2020-05-13 04:44] LABS: CREATININE SERUM 0.95 MG/DL (0.60-1.30); GFR ESTIMATED > 60; PHOSPHORUS 3.9 MG/DL (2.3-4.7)
[2020-05-13 04:45] LABS: BUN/CREATININE RATIO 24
[2020-05-13 04:46] LABS: MAGNESIUM 2.1 MG/DL (1.6-2.4)
--- NOTE | 2020-05-13 05:18 | NUR ---
DR CR NOTIFIED OF PT INCREASED DEMAND FOR O2. VAPOTHERM SETTING 40L 100%. SPO2 88-90%. NEW ORDER RECEIVED FOR ABG, CXR, BIPAP. IF PT TOLERATES BIPAP LEAVE IN CURRENT RM. THIS RN VERBALIZES UNDERSTANDING.
[2020-05-13] MEDS: cefTRIAXone FOR IV USE 1,000 MG in WATER (STERILE) FOR INJECTION 10 ML IV SCH (05:30)
[2020-05-13] MEDS: MAGNESIUM 1 GM/100 ML IVPB 100 ML IV SCH (05:31)
[2020-05-13] MEDS: KCL 20 MEQ TAB (K-DUR) PO SCH (05:31)
[2020-05-13] MEDS: CATHETER FLUSH 10 ML SYR IV SCH ×3 (05:31→20:04)
[2020-05-13] MEDS: POTASSIUM CL 10MEQ/50ML IVPB 50 ML IV SCH (05:31)
[2020-05-13 05:59] LABS: ABG BASE EXCESS 2.7 MMOL/L (-2.5-2.5); ABG OXYGEN SATURATION 100 % (94-100); ABG PCO2 36 MMHG (35-45); ABG PH 7.47 (7.37-7.43); ABG PO2 174 MMHG (79-93); ABG TCO2 27.2 MMOL/L (21.0-31.0)
[2020-05-13 06:15] LABS: ALLENS TEST POSITIVE; INSPIRED O2 70; PATIENT TEMP 37.2; VENTILATOR NO
--- NOTE | 2020-05-13 06:37 | NUR ---
[address] BYNUM NOTIFIED THIS RN OF 20% RIGHT SIDED PNEUMOTHORAX. [address] RN NOTIFIED DR CR OF PNEUMOTHORAX. DR CR REQUESTED THAT WE RESERVE AN ICU RM AND MOVE PATIENT WHEN HE AWAKENS OR IF CONDITION DECLINES. THIS RN VERBALIZED UNDERSTANDING.
--- NOTE | 2020-05-13 07:02 | Diagnostic Imaging Report ---
INDICATION: COVID positive, shortness of air. TECHNIQUE: Single view chest 5:40 AM. CORRELATION STUDY: 05/12/2020 FINDINGS: Heart size is enlarged, mediastinum mildly prominent. Vasculature is also prominent. Scattered bilateral pulmonary parenchymal opacities are again demonstrated. More focal consolidative or masslike density in the right mid lung is present. There is a small to moderate right-sided pneumothorax. The apical pleural line projecting below the posterior right 3rd rib. IMPRESSION: 1. Small to moderate, approximately 20% right-sided pneumothorax. 2. Bilateral pulmonary parenchymal opacities are again demonstrated. Findings remain most pronounced in the right perihilar region. CRITICAL FINDINGS Telephone call made to the patient's unit nurse, 6:25 AM. Dictated by: Dictated on workstation # [id number]
[2020-05-13] MEDS ORDERED: DexMEDEtomidine PRE MIX 100 ML IV ONE (08:29)
[2020-05-13] MEDS: ASPIRIN 81 MG CHEW (CHILDREN'S ASA) PO SCH (08:43)
[2020-05-13] MEDS: dexAMETHasone 6 MG TAB (DECADRON) PO SCH (08:43)
[2020-05-13] MEDS: ENOXAPARIN 100 MG/1 ML (LOVENOX) SYR SC SCH ×2 (08:43→20:01)
[2020-05-13] MEDS: AZITHROMYCIN INJECTION 250 MG in NS (IVPB) 250 ML IV SCH (08:44)
[2020-05-13] MEDS: FAMOTIDINE 20MG/2ML IV (PEPCID) IV SCH ×2 (08:44→20:02)
[2020-05-13] MEDS: FUROSEMIDE 40 MG/4 ML INJ (LASIX) IVP SCH (08:44)
[2020-05-13] MEDS: DexMEDEtomidine PRE MIX 100 ML IV SCH ×2 (08:45→16:29)
[2020-05-13] MEDS: meTOprolol TARTRATE 25 MG (LOPRESSOR) TABLET PO SCH ×2 (09:02→20:03)
[2020-05-13] MEDS: lisINopril 10 MG (PRINIVIL) TABLET PO SCH (09:02)
--- NOTE | 2020-05-13 10:39 | Progress Note - Hospitalist ---
Subjective HPI/CC On Admission Date Seen by Provider: May 13, 2020 Time Seen by Provider: 10:15 Subjective/Events-last exam Overnight patient had increased confusion and began requiring more more oxygenation. Chest x-ray showed a 20% right pneumothorax. The patient was transferred to the ICU and started on Precedex for his agitation. He is on 100% Vapotherm. With saturations of 93%. The patient is disoriented and thinks that he has been at a baseball game. Other than that he has no complaints. Review of Systems Neurological: Confusion Objective Exam Vital Signs Vital Signs Date Time Temp Pulse Resp B/P (MAP) Pulse Ox O2 Delivery O2 Flow Rate FiO2 05/14/20 11:00 57 109/64 (79) 97 Vapotherm 35.00 70.00 05/14/20 09:28 36.9 27 05/14/20 08:50 85 Capillary Refill : Less Than 3 Seconds General Appearance: Chronically ill HEENT: Normal ENT Inspection Neck: Normal Inspection, Non Tender, Supple Respiratory: Chest Non Tender, Rales (Right lung) Cardiovascular: Tachycardia Gastrointestinal: Distended, Other (Firm) Extremity: No Pedal Edema Neurologic/Psychiatric: Alert, Disoriented Skin: Warm/Dry Results/Procedures Lab Laboratory Tests 05/14/20 03:40 Patient resulted labs reviewed. Imaging: Reviewed Imaging Films, Reviewed Imaging Report Assessment/Plan Assessment and Plan Assess & Plan/Chief Complaint Acute respiratory failure secondary to COVID 19 PNA -now complicated with pneumothorax. -Currently requiring Vapotherm currently at 100% -Decadron day 4 -CVP -Does not qualify for Remdesivir -CTA - negative for PE Plan for surgical consultation as it is likely the patient is requiring to require ventilatory support and will require a chest tube- will discuss with (called left message) Discussed with - he advocates to ventilate as needed and chest tube will be placed if lung drops further Discussed management and complexities of management with eICU-who agrees with using Haldol for agitation as needed and proceed with elective intubation if the patient deteriorates or will not keep on his oxygen and becomes unstable. HTN improved control Lopressor to 25mg BID Lisinopril 10mg daily RML PNA per CXR -rocephin day 4 and azithromycin day 3 -Repeat PCT NSTEMI -Cardiology is consulted -theraputic dose lovenox -Echo ordered per EICU DDIMer is 12 -CTA is negative for PE -Will continue with theraputic anticoagulation will switch to Lovenox if ok with cardiology GI/DVT ppx Delirium-Per patient has had some underlying evidence of early dementia. Currently utilizing Precedex for mild sedation so that we can keep his oxygen on. Critical Care Critically Ill Patient MEHDI CR MD May 13, 2020 10:39
--- NOTE | 2020-05-13 10:43 | Diagnostic Imaging Report ---
INDICATION: Pneumothorax, follow-up. TECHNIQUE: Single view chest 10:22 AM. CORRELATION STUDY: 05/13/2020 FINDINGS: There is continued presence of a right-sided pneumothorax. The overall appearance is generally stable. Masslike density in the right hilum persists. Additional pulmonary opacities are also present. Findings may be slightly increased at the left lung base. The mediastinal structures are stable without significant deviation. IMPRESSION: 1. Stable appearance of a small right apical pneumothorax. 2. Bilateral pulmonary opacities do persist perhaps slightly increased left lung base. More focal masslike density of the right perihilar region remains as the dominant area. Mass lesion not excluded. Dictated by: Dictated on workstation # [id number]
[2020-05-13] MEDS ORDERED: NS IV 500 ML 500 ML ONE (12:28)
[2020-05-13] MEDS ORDERED: NS IV 1000 ML 1,000 ML ONE ×2 (12:50→17:55)
--- NOTE | 2020-05-13 13:00 | Consultation - Surgery ---
History of Present Illness History of Present Illness Patient Consulted On(bassam/time) 05/13/20 12:55 Time Seen by Provider: 10:06 History of Present Illness Surgery asked to consult regarding Pneumothorax. HPI: 60 years old gentleman was admitted through [place] emergency room with acute respiratory failure, patient was requiring 15 L of oxygen, noted to have elevated troponin level. Denied any chest pain. Currently on Vapotherm 70 percent, overnight did not have any chest pain, still having elevation in troponin level. EKG did not show any acute changes Events of last night noted, pt became more confused and is requiring more O2 - he is Covid-19 positive. He has a new PTX on CXR and is confused. He is trying to pull out catheters and is not really able to answer questions. Most info obtained from chart and nurse. He does not really have any complaints today. Allergies and Home Medications Allergies Coded Allergies: Penicillins (Verified Allergy, Severe, 05/08/20) Home Medications Acetaminophen 500 Mg Tablet, 1,000 MG PO Q4H PRN for PAIN-MILD (1-4), (Reported) Alprazolam 2 Mg Tablet, 2 MG PO TID PRN for ANXIETY/MUSCLE SPASMS, (Reported) Ascorbate Calcium 500 Mg Tablet, 500 MG PO DAILY, (Reported) Cholecalciferol (Vitamin D3) 25 Mcg Capsule, 25 MCG PO DAILY, (Reported) Hydrocodone/Acetaminophen 1 Each Tablet, 1 EA PO Q6H PRN for PAIN-MODERATE (5- 7), (Reported) Ibuprofen 200 Mg Tablet, 800 MG PO Q8H PRN for PAIN-MILD (1-4), (Reported) TAKES 4 (200MG) TABS Promethazine HCl/Codeine 5 Ml Syrup, 5 ML PO Q8H PRN for COUGH, (Reported) Patient Home Medication List Home Medication List Reviewed: Yes Past Patzben-Drybfl-Djgrgv Hx Patient Social History Drug of Choice: denies Smoking Status: Never a Smoker Alcohol Use?: No Family Medical History Significant Family History: Other Conditions/Hx (unable to obtain, pt not answering questions and was given Precedex to keep him from becoming to agitated) Review of Systems-General ROS-Unable to Obtain: pt confused and just given sedation Physical Exam-General Problems Physical Exam Vital Signs Vital Signs - First Documented 05/08/20 05/08/20 05/08/20 05/09/20 20:44 22:00 22:15 00:13 Temp 36.1 Pulse 107 Resp 20 B/P (MAP) 134/86 (102) Pulse Ox 91 O2 Delivery High Flow N/C O2 Flow Rate 10.00 FiO2 65 Capillary Refill : Less Than 3 Seconds General Appearance: mild distress, obese Eyes: Bilateral Eye PERRL, Bilateral Eye EOMI HEENT: No scleral icterus (R), No scleral icterus (L), No pale conjunctivae (R), No pale conjunctivae (L) Respiratory: chest non-tender, decreased breath sounds, accessory muscle use Cardiovascular: no murmur, tachycardia Gastrointestinal: non tender, soft, no organomegaly Extremities: pedal edema Skin: normal color, warm/dry Lymphatic: no adenopathy (neck, axilla or groin) Data Review Labs Laboratory Tests 05/12/20 16:45: Blood Gas Puncture Site L RAD, Blood Gas Patient Temperature 36.4, Arterial Blood pH 7.52H, Arterial Blood Partial Pressure CO2 32L, Arterial Blood Partial Pressure O2 78L, Arterial Blood HCO3 26, Arterial Blood Total CO2 27.3, Arterial Blood Oxygen Saturation 97, Arterial Blood Base Excess 3.3H, Cy Test YES-POS, Blood Gas Ventilator Setting NO, Blood Gas Inspired Oxygen 60% 05/12/20 19:30: Urine Color YELLOW, Urine Clarity CLEAR, Urine pH 7.0, Urine Specific Venus 1.010L, Urine Protein NEGATIVE, Urine Glucose (UA) NEGATIVE, Urine Ketones TRACEH, Urine Nitrite NEGATIVE, Urine Bilirubin NEGATIVE, Urine Urobilinogen 0.2, Urine Leukocyte Esterase NEGATIVE, Urine RBC (Auto) NEGATIVE, Urine RBC NONE, Urine WBC NONE, Urine Squamous Epithelial Cells RARE, Urine Renal Epithelial Cells RARE, Urine Crystals NONE, Urine Bacteria TRACE, Urine Casts NONE, Urine Mucus NEGATIVE, Urine Culture Indicated NO 05/13/20 03:52: White Blood Count 6.3, Red Blood Count 4.82, Hemoglobin 14.2, Hematocrit 43, Mean Corpuscular Volume 90, Mean Corpuscular Hemoglobin 30, Mean Corpuscular Hemoglobin Concent 33, Red Cell Distribution Width 12.7, Platelet Count 495H, Mean Platelet Volume 10.3, Immature Granulocyte % (Auto) 1, Neutrophils (%) (Auto) 68, Lymphocytes (%) (Auto) 20, Monocytes (%) (Auto) 11, Eosinophils (%) (Auto) 1, Basophils (%) (Auto) 0, Neutrophils # (Auto) 4.2, Lymphocytes # (Auto) 1.2, Monocytes # (Auto) 0.7, Eosinophils # (Auto) 0.0, Basophils # (Auto) 0.0, Immature Granulocyte # (Auto) 0.1, Sodium Level 144, Potassium Level 3.8, Chlo ride Level 105, Carbon Dioxide Level 23, Anion Gap 16H, Blood Urea Nitrogen 23H, Creatinine 0.95, Estimat Glomerular Filtration Rate > 60, BUN/Creatinine Ratio 24, Glucose Level 114H, Calcium Level 9.3, Phosphorus Level 3.9, Magnesium Level 2.1 05/13/20 05:40: Blood Gas Puncture Site RIGHT RADIAL, Blood Gas Patient Temperature 37.2, Arterial Blood pH 7.47H, Arterial Blood Partial Pressure CO2 36, Arterial Blood Partial Pressure O2 174H, Arterial Blood HCO3 26, Arterial Blood Total CO2 27.2, Arterial Blood Oxygen Saturation 100, Arterial Blood Base Excess 2.7H, Cy Test POSITIVE, Blood Gas Ventilator Setting NO, Blood Gas Inspired Oxygen 70 Microbiology 05/08/20 MRSA Screen - Final, Complete MRSA not isolated Radiology Date of Exam:05/13/20 CHEST 1 VIEW, AP/PA ONLY INDICATION: Pneumothorax, follow-up. TECHNIQUE: Single view chest 10:22 AM. CORRELATION STUDY: 05/13/2020 FINDINGS: There is continued presence of a right-sided pneumothorax. The overall appearance is generally stable. Masslike density in the right hilum persists. Additional pulmonary opacities are also present. Findings may be slightly increased at the left lung base. The mediastinal structures are stable without significant deviation. IMPRESSION: 1. Stable appearance of a small right apical pneumothorax. 2. Bilateral pulmonary opacities do persist perhaps slightly increased left lung base. More focal masslike density of the right perihilar region remains as the dominant area. Mass lesion not excluded. Dictated by: Dictated on workstation # [id number] Dict: 05/13/20 1029 Trans: 05/13/20 1123 KEITH [id number] Interpreted by: KELLI BYNUM DO Electronically signed by: KELLI BYNUM DO 05/13/20 1123 Assessment/Plan Assessment/Plan Assessment/Plan Pneumothorax Covid-19 Resp Failure Pneumothorax is stable, pt may need BiPap and then vent. There are some contraindications to doing chest tube now and I think at this time risks outweigh the benefits. I would recommend BiPap or vent if pt needs it and I will be on stand-by for chest tube if the PTX worsens. IRENA DENSON DO May 13, 2020 13:00
[2020-05-13] MEDS ORDERED: NS IV 1000 ML 1,000 ML IV ONE ×2 (13:15→18:00)
--- NOTE | 2020-05-13 17:06 | NUR ---
UPDATED , SON, AND DAUGHTER ON PT CONDITION. ZOOMED WITH PT AND DAUGHTER.
[2020-05-13] MEDS: HALOPERIDOL 5 MG/ML (HALDOL) VIAL IM PRN (19:58)
--- NOTE | 2020-05-13 21:55 | NUR ---
RETURNED PATIENT'S SON, PATRICIA JAVIER, CALL. PASSWORD VERIFIED. SON WAS CONFUSED BECAUSE HE STATED THAT HE HAD TALKED TO A NURSE YESTERDAY AND SHE WAS OPTIMISTIC THAT THE PATIENT WAS DOING WELL AND PROGRESSING AND THEN TODAY WHEN HE TALKED TO A DIFFERENT NURSE IT SOUNDED LIKE HE WAS NOT DOING WELL. EXPLAINED TO SON THAT PATIENT HAS HAD A DIFFICULT DAY DUE TO THE DISCOVERY OF THE PNEUMOTHORAX AND HIS INCREASED CONFUSION AND THAT HE HAD BEEN MOVED TO THE ICU. EXPLAINED WHAT A PNEUMOTHORAX IS AND THAT HE RECEIVED TWO CHEST X-RAYS TODAY AND WILL HAVE ANOTHER IN THE AM. HOPEFULLY, IT WILL BE STABLE OR DECREASING, BUT IF IT SHOULD INCREASE A CHEST TUBE WOULD BE A REAL POSSIBILITY. ALSO DISCUSSED THAT PATIENT IS CURRENTLY ON VAPOTHERM. ANSWERED QUESTIONS REGARDING INTUBATION. DISCUSSED PATIENT'S CONFUSION WITH SON. HE EXPLAINED THAT PATIENT IS SOMETIMES CONFUSED. ASKED IF HE HAD A DX OF DEMENTIA. SON REPLIED NO AND THAT THE DOCTOR HAS TOLD THEM THAT THE PERIODS OF CONFUSION ARE D/T THE PATIENT'S LONG-TERM USE OF HYDROCODONE FOR CHRONIC BACK PAIN AND THAT HE'S "BURNED SOME BRAIN CELLS" BY TAKING THEM FOR SO LONG.
--- NOTE | 2020-05-14 00:55 | NUR ---
RETURNED CALL FROM PATIENT'S . PASSWORD VERIFIED. HAD A SIMILAR CONVERSATION WITH THAT WAS HAD WITH SON EARLIER. EXPLAINED PNEUMOTHORAX AND POSSIBILITY OF CHEST TUBE. DISCUSSED PATIENT'S CURRENT OXYGEN REQUIREMENTS AND ANSWER QUESTIONS REGARDING INTUBATION. REINFORCED THAT WE WOULD NOTIFY HER IF PATIENT'S CONDITION CHANGES.
[2020-05-14] MEDS: DexMEDEtomidine PRE MIX 100 ML IV SCH ×4 (01:25→13:54)
[2020-05-14 03:52] LABS: BASOPHILS % (AUTO) 0 % (0-10); EOSINOPHILS % (AUTO) 0 % (0-10); HEMATOCRIT 39 % (40-54); HEMOGLOBIN 12.4 g/dL (13.3-17.7); LYMPHOCYTES % (AUTO) 15 % (12-44); MEAN CORPUSCULAR HEMOGLOBIN 29 pg (25-34); MEAN CORPUSCULAR HGB CONC 32 g/dL (32-36); MEAN CORPUSCULAR VOLUME 90 fL (80-99); MEAN PLATELET VOLUME 10.5 fL (9.0-12.2); MONOCYTES # (AUTO) 0.6 10^3/uL (0.0-1.0); MONOCYTES % (AUTO) 9 % (0-12); NEUTROPHILS # (AUTO) 5.1 10^3/uL (1.8-7.8); NEUTROPHILS % (AUTO) 76 % (42-75); PLATELET COUNT 418 10^3/uL (130-400); WHITE BLOOD COUNT 6.7 10^3/uL (4.3-11.0)
[2020-05-14 04:07] LABS: CHLORIDE 111 MMOL/L (98-107); POTASSIUM 4.3 MMOL/L (3.6-5.0); SODIUM 145 MMOL/L (135-145)
[2020-05-14 04:08] LABS: CALCIUM 8.9 MG/DL (8.5-10.1)
[2020-05-14 04:09] LABS: GLUCOSE 127 MG/DL (70-105)
[2020-05-14 04:10] LABS: CARBON DIOXIDE 23 MMOL/L (21-32)
[2020-05-14] MEDS: KCL 20 MEQ TAB (K-DUR) PO SCH (04:12)
[2020-05-14] MEDS: POTASSIUM CL 10MEQ/50ML IVPB 50 ML IV SCH (04:12)
[2020-05-14 04:13] LABS: CREATININE SERUM 0.93 MG/DL (0.60-1.30); GFR ESTIMATED > 60; PHOSPHORUS 3.3 MG/DL (2.3-4.7)
[2020-05-14 04:14] LABS: BUN/CREATININE RATIO 34
[2020-05-14 04:15] LABS: MAGNESIUM 2.1 MG/DL (1.6-2.4)
[2020-05-14] MEDS: MAGNESIUM 1 GM/100 ML IVPB 100 ML IV SCH (04:18)
[2020-05-14] MEDS ORDERED: WATER (STERILE) FOR INJECTION 10 ML ONE (04:20)
[2020-05-14] MEDS ORDERED: cefTRIAXone 1,000 MG IV (ROCEPHIN) VIAL ONE (04:20)
[2020-05-14] MEDS: cefTRIAXone FOR IV USE 1,000 MG in WATER (STERILE) FOR INJECTION 10 ML IV SCH (05:14)
[2020-05-14] MEDS: CATHETER FLUSH 10 ML SYR IV SCH ×3 (05:15→21:05)
--- NOTE | 2020-05-14 05:19 | NUR ---
THICK SILVER CHAIN WITH CROSS REMOVED FROM PATIENT'S NECK. PLACED IN BIOHAZARD BAG WITH PATIENT STICKER AND TAPED TO WALL OF ROOM.
[2020-05-14] MEDS: meTOprolol TARTRATE 25 MG (LOPRESSOR) TABLET PO SCH ×2 (07:28→20:54)
[2020-05-14] MEDS: lisINopril 10 MG (PRINIVIL) TABLET PO SCH (07:28)
[2020-05-14] MEDS: ENOXAPARIN 100 MG/1 ML (LOVENOX) SYR SC SCH ×2 (08:19→20:54)
[2020-05-14] MEDS: FAMOTIDINE 20MG/2ML IV (PEPCID) IV SCH ×2 (08:19→20:54)
[2020-05-14] MEDS: HALOPERIDOL 5 MG/ML (HALDOL) VIAL IM PRN (08:20)
[2020-05-14] MEDS: AZITHROMYCIN INJECTION 250 MG in NS (IVPB) 250 ML IV SCH (08:20)
[2020-05-14] MEDS: ASPIRIN 81 MG CHEW (CHILDREN'S ASA) PO SCH (08:20)
[2020-05-14] MEDS: dexAMETHasone 6 MG TAB (DECADRON) PO SCH (08:21)
--- NOTE | 2020-05-14 09:24 | Diagnostic Imaging Report ---
INDICATION: COVID and pneumonia. COMPARISON: Comparison is made to prior examination of 05/13/2020. FINDINGS: There is a persistent right pneumothorax which is unchanged. There are bilateral perihilar infiltrates, right greater than left. There is cardiomegaly. The mediastinum is unremarkable. IMPRESSION: Persistent right apical pneumothorax. Bilateral perihilar infiltrates. Cardiomegaly. Dictated by: Dictated on workstation # [id number]
[2020-05-14] MEDS: morphine INJ 4 MG/ML 1 ML (VIAL/SYRINGE) IVP PRN (09:34)
--- NOTE | 2020-05-14 09:49 | NUR ---
SPOKE WITH PT AND UPDATED ON CURRENT STATUS. ANSWERED QUESTIONS THAT HAD.
[2020-05-14] MEDS ORDERED: NS IV 1000 ML 500 ML IV ONE (10:00)
[2020-05-14] MEDS: NS IV 1000 ML 1,000 ML IV SCH (10:24)
--- NOTE | 2020-05-14 11:29 | Progress Note - Hospitalist ---
Subjective HPI/CC On Admission Date Seen by Provider: May 14, 2020 Time Seen by Provider: 10:30 Subjective/Events-last exam Patient requires sedation or becomes very agitated. We have been utilizing low- dose Precedex and Haldol on a as needed basis. Chest x-ray shows that the pneumo thorax is not any worse. He remains on Vapotherm 35/70% respiratory therapy and nursing staff are included in the discussion of medical treatment today Review of Systems Neurological: Confusion, Other Objective Exam Vital Signs Vital Signs Date Time Temp Pulse Resp B/P (MAP) Pulse Ox O2 Delivery O2 Flow Rate FiO2 05/14/20 11:00 57 109/64 (79) 97 Vapotherm 35.00 70.00 05/14/20 09:28 36.9 27 05/14/20 08:50 85 Capillary Refill : Less Than 3 Seconds General Appearance: WD/WN, Other (Sleeping) Respiratory: No Accessory Muscle Use, No Respiratory Distress, Crackles Cardiovascular: Regular Rate, Rhythm, No Gallop, No Murmur, Normal Peripheral Pulses Gastrointestinal: Normal Bowel Sounds, Non Tender, Soft Extremity: No Pedal Edema Neurologic/Psychiatric: Disoriented Results/Procedures Lab Laboratory Tests 05/14/20 03:40 Patient resulted labs reviewed. Imaging: Reviewed Imaging Films, Reviewed Imaging Report Assessment/Plan Assessment and Plan Assess & Plan/Chief Complaint Acute respiratory failure secondary to COVID 19 PNA -now complicated with pneumothorax. -Currently requiring Vapotherm currently at 70% which is improved from yesterday -Decadron day 5 -CVP -Does not qualify for Remdesivir -CTA - negative for PE Plan for surgical consultation as it is likely the patient is requiring to require ventilatory support and will require a chest tube- will discuss with (called left message) Discussed with - he advocates to ventilate as needed and chest tube will be placed if lung drops further Discussed management and complexities of management with eICU-who agrees with using Haldol for agitation as needed and proceed with elective intubation if the patient deteriorates or will not keep on his oxygen and becomes unstable. HTN by history blood pressure is soft and medications are being held RML PNA per CXR -rocephin day 5 and azithromycin day 4 -Repeat PCT NSTEMI -Cardiology is consulted -theraputic dose lovenox -Echo ordered per EICU DDIMer is 12 -CTA is negative for PE -Will continue with theraputic anticoagulation will switch to Lovenox if ok with cardiology GI/DVT ppx Delirium-Per patient has had some underlying evidence of early dementia. Currently utilizing Precedex, Haldol for mild sedation so that we can keep his oxygen on. Critical Care Critically Ill Patient MEHDI CR MD May 14, 2020 11:29
[2020-05-14] MEDS ORDERED: HALOPERIDOL 5 MG/ML (HALDOL) VIAL IM PRN (15:00)
--- NOTE | 2020-05-14 17:47 | Progress Note - Surgery ---
Subjective Time Seen by a Provider: 12:53 Subjective/Events-last exam Pt seen and examined, he is on maximum precedex to keep him calm. When he is agitated he requires more O2. Nurse states he is breathing fine, no changes. Review of Systems General: No Chills, No Night Sweats Cardiovascular: No: Chest Pain, Palpitations Gastrointestinal: No: Nausea, Vomiting, Abdominal Pain Objective Exam Vital Signs Date Time Temp Pulse Resp B/P (MAP) Pulse Ox O2 Delivery O2 Flow Rate FiO2 05/14/20 17:00 50 28 116/73 (87) 94 Vapotherm 30.00 50.00 05/14/20 16:00 48 25 124/75 (91) 96 Vapotherm 30.00 50.00 05/14/20 15:58 99 Vapotherm 30.00 60 05/14/20 15:21 36.0 05/14/20 15:00 48 24 115/63 (80) 98 Vapotherm 30.00 60.00 05/14/20 14:37 Vapotherm 30.00 60.00 05/14/20 14:19 97 Vapotherm 30.00 60 05/14/20 14:00 57 25 111/80 (90) 97 Vapotherm 35.00 70.00 05/14/20 13:54 36.9 55 27 116/70 94 35.00 05/14/20 13:53 36.9 55 27 116/70 94 35.00 05/14/20 13:00 52 116/70 (85) 94 Vapotherm 35.00 70.00 05/14/20 13:00 55 05/14/20 12:00 53 108/65 (79) 96 Vapotherm 35.00 70.00 05/14/20 11:45 36.6 05/14/20 11:00 57 109/64 (79) 97 Vapotherm 35.00 70.00 05/14/20 10:00 96 95/69 (78) 96 Vapotherm 35.00 70.00 05/14/20 09:28 36.9 80 27 101/63 96 35.00 05/14/20 09:00 101 24 98/64 (75) 93 Vapotherm 35.00 70.00 05/14/20 08:50 96 Vapotherm 35.00 85 05/14/20 08:08 98 Vapotherm 35.00 85 05/14/20 08:00 53 27 101/63 (76) 98 Vapotherm 35.00 70.00 05/14/20 07:51 36.9 05/14/20 07:00 55 32 97/59 (72) 98 Vapotherm 35.00 90.00 05/14/20 07:00 68 05/14/20 06:00 74 20 87/66 (73) 95 Vapotherm 35.00 90.00 05/14/20 05:00 64 20 105/68 (80) 97 Vapotherm 35.00 90.00 05/14/20 04:00 72 22 88/66 (73) 98 Vapotherm 35.00 90.00 05/14/20 04:00 36.8 05/14/20 03:00 69 20 120/77 (91) 96 Vapotherm 35.00 90.00 05/14/20 02:00 51 18 111/76 (88) 99 Vapotherm 35.00 90.00 05/14/20 01:54 100 Vapotherm 35.00 85 05/14/20 01:25 61 108/59 05/14/20 01:00 66 20 108/59 (75) 94 Vapotherm 35.00 90.00 05/14/20 01:00 81 05/14/20 00:00 36.7 05/14/20 00:00 69 20 95/73 (80) 97 Vapotherm 35.00 90.00 05/13/20 23:00 63 19 103/73 (83) 97 Vapotherm 35.00 90.00 05/13/20 22:00 74 23 104/68 (80) 99 Vapotherm 35.00 90.00 05/13/20 21:31 100 Vapotherm 35.00 100 05/13/20 21:00 87 20 100/60 (73) 96 Vapotherm 35.00 90.00 05/13/20 21:00 93 Vapotherm 35.00 90 05/13/20 20:00 81 13 107/68 (81) 92 Vapotherm 35.00 90.00 05/13/20 19:46 36.1 05/13/20 19:08 93 Vapotherm 30.00 80 05/13/20 19:00 103 1/16/21 19:00 96 28 120/86 (97) 94 Vapotherm 35.00 90.00 05/13/20 18:00 53 20 105/70 (82) 99 Vapotherm 40.00 100.00 I & O 05/14/20 07:00 Intake Total 1400 ml Output Total 1825 ml Balance -425 ml Capillary Refill : Less Than 3 Seconds General Appearance: Obese, Other (Sleeping) Respiratory: No Respiratory Distress, Accessory Muscle Use, Crackles, Decreased Breath Sounds Cardiovascular: No Murmur, Bradycardia (nurse states when he wakes up his heart rate is in the 80's) Gastrointestinal: non tender, soft, no organomegaly Extremity: No Pedal Edema Neurologic/Psychiatric: Disoriented, Other (sleeping secondary to precedex) Skin: Warm/Dry Results Lab Laboratory Tests 05/14/20 03:40: White Blood Count 6.7, Red Blood Count 4.33, Hemoglobin 12.4L, Hematocrit 39L, Mean Corpuscular Volume 90, Mean Corpuscular Hemoglobin 29, Mean Corpuscular Hemoglobin Concent 32, Red Cell Distribution Width 12.5, Platelet Count 418H, Mean Platelet Volume 10.5, Immature Granulocyte % (Auto) 1, Neutrophils (%) (Auto) 76H, Lymphocytes (%) (Auto) 15, Monocytes (%) (Auto) 9, Eosinophils (%) (Auto) 0, Basophils (%) (Auto) 0, Neutrophils # (Auto) 5.1, Lymphocytes # (Auto) 1.0, Monocytes # (Auto) 0.6, Eosinophils # (Auto) 0.0, Basophils # (Auto) 0.0, Immature Granulocyte # (Auto) 0.1, Sodium Level 145, Potassium Level 4.3, Chloride Level 111H, Carbon Dioxide Level 23, Anion Gap 11, Blood Urea Nitrogen 32H, Creatinine 0.93, Estimat Glomerular Filtration Rate > 60, BUN/Creatinine Ratio 34, Glucose Level 127H, Calcium Level 8.9, Phosphorus Level 3.3, Magnesium Level 2.1 Microbiology 05/08/20 MRSA Screen - Final, Complete MRSA not isolated Assessment/Plan Assessment/Plan Assessment/Plan Pneumothorax Covid-19 Resp Failure Pneumothorax is stable, pt may need BiPap and then vent. There are some contraindications to doing chest tube now and I think at this time risks outweigh the benefits. I would recommend BiPap or vent if pt needs it and I will be on stand-by for chest tube if the PTX worsens. IRENA DENSON DO May 14, 2020 17:47
[2020-05-15] MEDS: NS IV 1000 ML 1,000 ML IV SCH ×2 (00:15→02:06)
[2020-05-15] MEDS: morphine INJ 4 MG/ML 1 ML (VIAL/SYRINGE) IVP PRN (00:21)
[2020-05-15] MEDS: DexMEDEtomidine PRE MIX 100 ML IV SCH (02:06)
[2020-05-15 03:48] LABS: BASOPHILS % (AUTO) 0 % (0-10); EOSINOPHILS # (AUTO) 0.2 10^3/uL (0.0-0.3); EOSINOPHILS % (AUTO) 3 % (0-10); HEMATOCRIT 37 % (40-54); HEMOGLOBIN 11.9 g/dL (13.3-17.7); LYMPHOCYTES # (AUTO) 1.2 10^3/uL (1.0-4.0); LYMPHOCYTES % (AUTO) 21 % (12-44); MEAN CORPUSCULAR HEMOGLOBIN 30 pg (25-34); MEAN CORPUSCULAR HGB CONC 32 g/dL (32-36); MEAN CORPUSCULAR VOLUME 92 fL (80-99); MEAN PLATELET VOLUME 10.7 fL (9.0-12.2); MONOCYTES # (AUTO) 0.6 10^3/uL (0.0-1.0); MONOCYTES % (AUTO) 10 % (0-12); NEUTROPHILS # (AUTO) 3.8 10^3/uL (1.8-7.8); NEUTROPHILS % (AUTO) 65 % (42-75); PLATELET COUNT 379 10^3/uL (130-400); WHITE BLOOD COUNT 5.9 10^3/uL (4.3-11.0)
[2020-05-15 04:06] LABS: CHLORIDE 113 MMOL/L (98-107); POTASSIUM 3.8 MMOL/L (3.6-5.0); SODIUM 146 MMOL/L (135-145)
[2020-05-15 04:07] LABS: CALCIUM 8.5 MG/DL (8.5-10.1)
[2020-05-15 04:08] LABS: GLUCOSE 125 MG/DL (70-105)
[2020-05-15 04:09] LABS: CARBON DIOXIDE 23 MMOL/L (21-32)
[2020-05-15 04:11] LABS: PHOSPHORUS 2.2 MG/DL (2.3-4.7)
[2020-05-15 04:12] LABS: BUN/CREATININE RATIO 31; CREATININE SERUM 0.81 MG/DL (0.60-1.30); GFR ESTIMATED > 60
--- NOTE | 2020-05-15 04:33 | Pulmonary Progress Note ---
Subjective Date Seen by a Provider: May 15, 2020 Time Seen by a Provider: 04:26 Subjective/Events-last exam Pt appears to be doing better. Sepsis Event Evaluation Height, Weight, BMI Height: '" Weight: lbs. oz. kg; 35.74 BMI Method: Exam Exam Vital Signs Date Time Temp Pulse Resp B/P (MAP) Pulse Ox O2 Delivery O2 Flow Rate FiO2 05/15/20 02:09 98 Nasal Cannula 2.50 05/15/20 02:06 45 104/60 05/15/20 00:00 36.6 68 96 Nasal Cannula 3.50 05/15/20 00:00 45 25 112/75 (87) 98 Nasal Cannula 4.00 05/14/20 23:00 51 138/82 (100) 95 Nasal Cannula 4.00 05/14/20 22:00 49 121/74 (90) 96 Nasal Cannula 4.00 05/14/20 21:16 Nasal Cannula 4.00 05/14/20 21:12 96 Vapotherm 15.00 40 05/14/20 21:05 48 28 93 Vapotherm 15.00 35.00 05/14/20 21:00 93 Vapotherm 15.00 35 05/14/20 21:00 55 37 124/73 (90) 93 Vapotherm 15.00 40.00 05/14/20 20:00 47 26 120/69 (86) 96 Vapotherm 15.00 40.00 05/14/20 19:35 36.8 05/14/20 19:09 96 Vapotherm 25.00 50 05/14/20 19:00 48 23 110/71 (84) 97 Vapotherm 15.00 40.00 05/14/20 19:00 95 Vapotherm 15.00 40.00 05/14/20 19:00 48 05/14/20 18:00 47 29 115/69 (84) 97 Vapotherm 30.00 50.00 05/14/20 17:00 50 28 116/73 (87) 94 Vapotherm 30.00 50.00 05/14/20 16:00 48 25 124/75 (91) 96 Vapotherm 30.00 50.00 05/14/20 15:58 99 Vapotherm 30.00 60 05/14/20 15:21 36.0 05/14/20 15:00 48 24 115/63 (80) 98 Vapotherm 30.00 60.00 05/14/20 14:37 Vapotherm 30.00 60.00 05/14/20 14:19 97 Vapotherm 30.00 60 05/14/20 14:00 57 25 111/80 (90) 97 Vapotherm 35.00 70.00 05/14/20 13:54 36.9 55 27 116/70 94 35.00 05/14/20 13:53 36.9 55 27 116/70 94 35.00 05/14/20 13:00 52 116/70 (85) 94 Vapotherm 35.00 70.00 05/14/20 13:00 55 05/14/20 12:00 53 108/65 (79) 96 Vapotherm 35.00 70.00 05/14/20 11:45 36.6 05/14/20 11:00 57 109/64 (79) 97 Vapotherm 35.00 70.00 05/14/20 10:00 96 95/69 (78) 96 Vapotherm 35.00 70.00 05/14/20 09:28 36.9 80 27 101/63 96 35.00 05/14/20 09:00 101 24 98/64 (75) 93 Vapotherm 35.00 70.00 05/14/20 08:50 96 Vapotherm 35.00 85 05/14/20 08:08 98 Vapotherm 35.00 85 05/14/20 08:00 53 27 101/63 (76) 98 Vapotherm 35.00 70.00 05/14/20 07:51 36.9 05/14/20 07:00 55 32 97/59 (72) 98 Vapotherm 35.00 90.00 05/14/20 07:00 68 05/14/20 06:00 74 20 87/66 (73) 95 Vapotherm 35.00 90.00 05/14/20 05:00 64 20 105/68 (80) 97 Vapotherm 35.00 90.00 I & O 05/15/20 07:00 Intake Total 1625 ml Output Total 925 ml Balance 700 ml Height & Weight Height: '" Weight: lbs. oz. kg; 35.74 BMI Method: General Appearance: No Apparent Distress, Obese Respiratory: No Respiratory Distress, Accessory Muscle Use, Crackles, Decreased Breath Sounds Cardiovascular: No Murmur, Bradycardia (nurse states when he wakes up his heart rate is in the 80's) Capillary Refill: Less Than 3 Seconds Gastrointestinal: non tender, soft, no organomegaly Extremity: No Pedal Edema Neurologic/Psychiatric: Disoriented, Other (sleeping secondary to precedex) Skin: Warm/Dry Results Lab Laboratory Tests 05/14/20 03:40 05/15/20 03:22 Assessment/Plan Assessment/Plan Acute respiratory failure secondary to COVID 19 PNA -Currently on NC at 2 liters -give Lasix 40mg IV x 1 -Decadron -CVP -EICU managed pt through the weekend. -Does not qualify for Remdesivir -CTA - negative for PE -Give 20mg of Lasix x 1 right acute PTX -Monitor Agitation -Hold Precedex HTN -Increase Lopressor to 25mg BID -Add Lisinopril 10mg daily RML PNA per CXR -rocephin and azithromycin -Repeat PCT NSTEMI -Cardiology is consulted -theraputic dose lovenox -Echo ordered per EICU DDIMer is 12 -CTA is negative for PE -Will continue with theraputic anticoagulation will switch to Lovenox if ok with cardiology GI/DVT ppx FABIOLA GREENFIELD DO May 15, 2020 04:33
[2020-05-15] MEDS: KCL 20 MEQ TAB (K-DUR) PO SCH (05:51)
[2020-05-15] MEDS: MAGNESIUM 1 GM/100 ML IVPB 100 ML IV SCH (05:51)
[2020-05-15] MEDS: POTASSIUM CL 10MEQ/50ML IVPB 50 ML IV SCH (05:51)
[2020-05-15] MEDS: CATHETER FLUSH 10 ML SYR IV SCH ×3 (06:35→23:57)
--- NOTE | 2020-05-15 08:20 | Diagnostic Imaging Report ---
CHEST 1 VIEW, AP/PA ONLY Indication: Pneumothorax, Covid-19 pneumonia. Comparison: 05/14/2020 Findings: Improved but persistent right apical pneumothorax now approximately 1 cm of apical pleural separation. Right midlung zone heterogeneous consolidations are unchanged. No pleural effusion. Stable cardiomediastinal silhouette. Architectural distortion and parenchymal bands in the left lung are stable. Impression: 1. Improved but persistent small right apical pneumothorax. Dictated by: Dictated on workstation # [id number]
[2020-05-15] MEDS ORDERED: risperiDONE 0.5 MG (RisperDAL) TABLET PO SCH (09:00)
[2020-05-15] MEDS: ASPIRIN 81 MG CHEW (CHILDREN'S ASA) PO SCH (14:40)
[2020-05-15] MEDS: dexAMETHasone 6 MG TAB (DECADRON) PO SCH (14:40)
[2020-05-15] MEDS: lisINopril 10 MG (PRINIVIL) TABLET PO SCH (14:40)
[2020-05-15] MEDS: meTOprolol TARTRATE 25 MG (LOPRESSOR) TABLET PO SCH ×2 (14:40→23:56)
[2020-05-15] MEDS: ENOXAPARIN 100 MG/1 ML (LOVENOX) SYR SC SCH ×2 (14:41→23:57)
[2020-05-15] MEDS: AZITHROMYCIN INJECTION 250 MG in NS (IVPB) 250 ML IV SCH (17:13)
[2020-05-15] MEDS ORDERED: oxyCODONE/APAP 10/325MG (PERCOCET 10) TABLET PO ONE (18:33)
[2020-05-15] MEDS: oxyCODONE/APAP 10/325MG (PERCOCET 10) TABLET PO PRN ×2 (18:43→23:57)
--- NOTE | 2020-05-15 20:38 | Progress Note - Surgery ---
Subjective Time Seen by a Provider: 15:41 Subjective/Events-last exam Pt seen and examined, comfortable on room air and denied trouble breathing. Pt denies any right sided chest pain. Review of Systems General: No Chills, No Night Sweats Pulmonary: No Dyspnea, No Cough Cardiovascular: No: Chest Pain Gastrointestinal: No: Nausea, Vomiting, Abdominal Pain Neurological: No: Confusion Objective Exam Vital Signs Date Time Temp Pulse Resp B/P (MAP) Pulse Ox O2 Delivery O2 Flow Rate FiO2 05/15/20 19:12 36.7 64 20 132/70 (90) 92 Nasal Cannula 1.00 05/15/20 16:08 36.9 77 20 132/66 (88) 92 Nasal Cannula 1.00 05/15/20 11:48 36.7 69 22 138/70 (92) 93 Nasal Cannula 2.00 05/15/20 08:45 68 32 167/76 (106) 94 Nasal Cannula 2.00 05/15/20 08:30 Room Air 05/15/20 07:48 36.9 05/15/20 06:38 78 05/15/20 06:00 71 24 118/69 (85) 94 Nasal Cannula 2.00 05/15/20 05:00 72 20 136/95 (109) 97 Nasal Cannula 2.00 05/15/20 04:00 50 96/60 (72) 97 Nasal Cannula 2.00 05/15/20 03:30 36.8 05/15/20 03:00 45 105/65 (78) 97 Nasal Cannula 2.00 05/15/20 02:45 42 99/66 (77) 97 Nasal Cannula 2.00 05/15/20 02:09 98 Nasal Cannula 2.50 05/15/20 02:06 45 104/60 05/15/20 02:00 46 104/60 (75) 99 Nasal Cannula 3.50 05/15/20 01:00 50 29 101/69 (80) 97 Nasal Cannula 3.50 05/15/20 01:00 50 05/15/20 00:00 36.6 68 96 Nasal Cannula 3.50 05/15/20 00:00 45 25 112/75 (87) 98 Nasal Cannula 4.00 05/14/20 23:00 51 138/82 (100) 95 Nasal Cannula 4.00 05/14/20 22:00 49 121/74 (90) 96 Nasal Cannula 4.00 05/14/20 21:16 Nasal Cannula 4.00 05/14/20 21:12 96 Vapotherm 15.00 40 05/14/20 21:05 48 28 93 Vapotherm 15.00 35.00 05/14/20 21:00 93 Vapotherm 15.00 35 05/14/20 21:00 55 37 124/73 (90) 93 Vapotherm 15.00 40.00 I & O 05/15/20 07:00 Intake Total 1975 ml Output Total 1150 ml Balance 825 ml Capillary Refill : Less Than 3 Seconds General Appearance: No Apparent Distress, Obese Respiratory: No Accessory Muscle Use, No Respiratory Distress, Crackles Cardiovascular: Regular Rate, Rhythm, No Murmur Gastrointestinal: non tender, soft, no organomegaly Extremity: No Pedal Edema Neurologic/Psychiatric: Disoriented, Other (sleeping secondary to precedex) Skin: Warm/Dry Results Lab Laboratory Tests 05/15/20 00:07: Glucometer 125H 05/15/20 03:22: White Blood Count 5.9, Red Blood Count 4.00L, Hemoglobin 11.9L, Hematocrit 37L, Mean Corpuscular Volume 92, Mean Corpuscular Hemoglobin 30, Mean Corpuscular Hemoglobin Concent 32, Red Cell Distribution Width 12.5, Platelet Count 379, Mean Platelet Volume 10.7, Immature Granulocyte % (Auto) 1, Neutrophils (%) (A uto) 65, Lymphocytes (%) (Auto) 21, Monocytes (%) (Auto) 10, Eosinophils (%) (Auto) 3, Basophils (%) (Auto) 0, Neutrophils # (Auto) 3.8, Lymphocytes # (Auto) 1.2, Monocytes # (Auto) 0.6, Eosinophils # (Auto) 0.2, Basophils # (Auto) 0.0, Immature Granulocyte # (Auto) 0.1, Sodium Level 146H, Potassium Level 3.8, Chloride Level 113H, Carbon Dioxide Level 23, Anion Gap 10, Blood Urea Nitrogen 25H, Creatinine 0.81, Estimat Glomerular Filtration Rate > 60, BUN/Creatinine Ratio 31, Glucose Level 125H, Calcium Level 8.5, Phosphorus Level 2.2L, Magnesium Level 2.0 Microbiology 05/08/20 MRSA Screen - Final, Complete MRSA not isolated Radiology Date of Exam:05/15/20 CHEST 1 VIEW, AP/PA ONLY CHEST 1 VIEW, AP/PA ONLY Indication: Pneumothorax, Covid-19 pneumonia. Comparison: 05/14/2020 Findings: Improved but persistent right apical pneumothorax now approximately 1 cm of apical pleural separation. Right midlung zone heterogeneous consolidations are unchanged. No pleural effusion. Stable cardiomediastinal silhouette. Architectural distortion and parenchymal bands in the left lung are stable. Impression: 1. Improved but persistent small right apical pneumothorax. Dictated by: Dictated on workstation # [id number] Dict: 05/15/2012 Trans: 05/15/20 0832 [id number] Interpreted by: THALIA COON MD Electronically signed by: THALIA COON MD 05/15/20 0832 Assessment/Plan Assessment/Plan Assessment/Plan Pneumothorax Covid-19 Resp Failure Pneumothorax is slightly improved; and it looks like pt may no longer need BiPap or vent. Will continue to follow PTX. IRENA DENSON DO May 15, 2020 20:38
[2020-05-15] MEDS: ALPRAZolam 0.5 MG (XANAX) TAB PO PRN (21:34)
[2020-05-16 05:38] LABS: BASOPHILS % (AUTO) 0 % (0-10); EOSINOPHILS % (AUTO) 0 % (0-10); HEMATOCRIT 42 % (40-54); HEMOGLOBIN 13.7 g/dL (13.3-17.7); LYMPHOCYTES # (AUTO) 0.8 10^3/uL (1.0-4.0); LYMPHOCYTES % (AUTO) 14 % (12-44); MEAN CORPUSCULAR HEMOGLOBIN 29 pg (25-34); MEAN CORPUSCULAR HGB CONC 33 g/dL (32-36); MEAN CORPUSCULAR VOLUME 90 fL (80-99); MEAN PLATELET VOLUME 10.5 fL (9.0-12.2); MONOCYTES # (AUTO) 0.6 10^3/uL (0.0-1.0); MONOCYTES % (AUTO) 10 % (0-12); NEUTROPHILS # (AUTO) 4.1 10^3/uL (1.8-7.8); NEUTROPHILS % (AUTO) 73 % (42-75); PLATELET COUNT 492 10^3/uL (130-400); WHITE BLOOD COUNT 5.6 10^3/uL (4.3-11.0)
[2020-05-16 05:48] LABS: CHLORIDE 109 MMOL/L (98-107); POTASSIUM 3.6 MMOL/L (3.6-5.0); SODIUM 143 MMOL/L (135-145)
[2020-05-16 05:49] LABS: CALCIUM 8.8 MG/DL (8.5-10.1)
[2020-05-16 05:50] LABS: GLUCOSE 131 MG/DL (70-105)
[2020-05-16 05:51] LABS: CARBON DIOXIDE 26 MMOL/L (21-32)
[2020-05-16 05:54] LABS: CREATININE SERUM 0.76 MG/DL (0.60-1.30); GFR ESTIMATED > 60
[2020-05-16 05:55] LABS: BUN/CREATININE RATIO 22
[2020-05-16] MEDS: MAGNESIUM 1 GM/100 ML IVPB 100 ML IV SCH (06:40)
[2020-05-16] MEDS: CATHETER FLUSH 10 ML SYR IV SCH ×3 (06:56→20:20)
[2020-05-16] MEDS ORDERED: NS IV 500 ML 500 ML ONE (06:58)
[2020-05-16] MEDS: POTASSIUM CL 10MEQ/50ML IVPB 50 ML IV SCH ×3 (06:58→08:07)
[2020-05-16] MEDS: PANTOPRAZOLE 40 MG (PROTONIX) TAB PO SCH (08:07)
[2020-05-16] MEDS: ASPIRIN 81 MG CHEW (CHILDREN'S ASA) PO SCH (08:07)
[2020-05-16] MEDS: dexAMETHasone 6 MG TAB (DECADRON) PO SCH (08:07)
[2020-05-16] MEDS: meTOprolol TARTRATE 25 MG (LOPRESSOR) TABLET PO SCH ×2 (08:07→20:19)
[2020-05-16] MEDS: lisINopril 10 MG (PRINIVIL) TABLET PO SCH (08:08)
[2020-05-16] MEDS: ENOXAPARIN 100 MG/1 ML (LOVENOX) SYR SC SCH (08:08)
[2020-05-16] MEDS: oxyCODONE/APAP 10/325MG (PERCOCET 10) TABLET PO PRN ×2 (08:13→16:40)
[2020-05-16] MEDS: risperiDONE 0.5 MG (RisperDAL) TABLET PO PRN (08:13)
--- NOTE | 2020-05-16 10:07 | Diagnostic Imaging Report ---
EXAM: CHEST 1 VIEW, AP/PA ONLY. INDICATION: Pneumothorax. COMPARISON: Chest radiograph 05/15/2020. FINDINGS: Enlarging right pneumothorax occupying approximately 20% of the right hemithorax. This now measures approximately 4.5 cm at the apex, previously 1.3 cm when measured in a similar fashion. Atelectasis in the right midlung. Multifocal airspace opacities in the left lung. Cardiomegaly. Normal central pulmonary vascularity. No pleural effusion. No acute osseous findings. IMPRESSION: 1. Enlarging right pneumothorax now occupying approximately 20% of the right hemithorax. 2. Persistent multifocal airspace opacities in the left lung and perihilar consolidation on the right. 3. The report was called to the patient's nurse Joyce by [email or web address]@10:05 AM. Dictated by: Dictated on workstation # [id number]
--- NOTE | 2020-05-16 10:12 | NUR ---
Notified by radiology at this time of chest xray results. Dr. Olmos notified by this RN via telephone. No new orders at this time.
--- NOTE | 2020-05-16 11:20 | Progress Note - Hospitalist ---
Subjective HPI/CC On Admission Date Seen by Provider: May 16, 2020 Time Seen by Provider: 10:20 Subjective/Events-last exam he is feeling about the same as yesterday. He reports feeling like his left lung is being compressed. He reports left-sided pleuritic chest pain. He denies fevers. He does feel short of breath. He still has a cough. Objective Exam Vital Signs Vital Signs Date Time Temp Pulse Resp B/P (MAP) Pulse Ox O2 Delivery O2 Flow Rate FiO2 05/16/20 09:00 94 Nasal Cannula 2.00 05/16/20 07:30 35.6 72 19 147/80 (102) 05/14/20 21:12 40 Capillary Refill : Less Than 3 Seconds General Appearance: No Apparent Distress, WD/WN Respiratory: No Respiratory Distress, Decreased Breath Sounds Cardiovascular: Regular Rate, Rhythm, No Edema, No Murmur Gastrointestinal: Normal Bowel Sounds, Non Tender, Soft Extremity: Normal Inspection, Non Tender, No Pedal Edema Neurologic/Psychiatric: Alert, Oriented x3, No Motor/Sensory Deficits, Normal Mood/Affect Skin: Normal Color, Warm/Dry Results/Procedures Lab Laboratory Tests 05/16/20 05:29 Patient resulted labs reviewed. Imaging: Reviewed Imaging Report Assessment/Plan Assessment and Plan Assess & Plan/Chief Complaint Pneumothorax Chest xray showed increasing pneumothorax Surgery following, appreciate assistance Acute respiratory failure due to COVID-19 Decadron s/p convalescent plasma Oxygen requirement improving Hypercoagulable state associated with COVID-19 CTA negative for PE Therapeutic Lovenox PNA s/p Rocephin and Azithromycin HTN Continue Lisinopril and Metoprolol NSTEMI, type II Cardiology following, appreciate assistance Agitation, resolved Diagnosis/Problems Diagnosis/Problems (1) Pneumothorax Status: Acute (2) Acute respiratory failure due to COVID-19 Status: Acute (3) Hypercoagulable state associated with COVID-19 Status: Acute (4) PNA (pneumonia) Status: Resolved Resolution Date/Time: 05/16/20 @ 11:21 (5) HTN (hypertension) Status: Chronic Qualifiers: Hypertension type: essential hypertension Qualified Codes: I10 - Essential (primary) hypertension KINGS GARCIA MD May 16, 2020 11:20
--- NOTE | 2020-05-16 11:38 | Progress Note - Cardiology ---
Cardiology SOAP Progress Note Subjective: Sitting up in bed C/O chest discomfort with inspiration, more so on the right side C/O SOB, unchanged from yesterday Objective: I&O/Vital Signs 05/16/20 05/16/20 05/16/20 05/16/20 03:36 07:30 09:00 11:06 Temp 37.0 35.6 Pulse 67 72 Resp 20 19 B/P (MAP) 133/75 (94) 147/80 (102) Pulse Ox 93 91 94 O2 Delivery Nasal Cannula Nasal Cannula Nasal Cannula Nasal Cannula O2 Flow Rate 2.00 1.00 2.00 2.00 05/16/20 00:00 Intake Total 1160 ml Output Total 1025 ml Balance 135 ml Constitutional: AAO x 3, well-developed, well-nourished Cardiovascular: No JVD; S1 and S2 Gastrointestional: No tender; soft, round, audible bowel sounds Extremities: no lower extremity edema bilateral Neurologic/Psychiatric: grossly intact (moves all extremities) Skin: No rash on exposed areas, No ulcerations on exposed areas Results/Procedures: Labs Laboratory Tests 05/16/20 05:29: White Blood Count 5.6, Red Blood Count 4.70, Hemoglobin 13.7, Hematocrit 42, Mean Corpuscular Volume 90, Mean Corpuscular Hemoglobin 29, Mean Corpuscular Hemoglobin Concent 33, Red Cell Distribution Width 12.6, Platelet Count 492H, Mean Platelet Volume 10.5, Immature Granulocyte % (Auto) 2, Neutrophils (%) (Auto) 73, Lymphocytes (%) (Auto) 14, Monocytes (%) (Auto) 10, Eosinophils (%) (Auto) 0, Basophils (%) (Auto) 0, Neutrophils # (Auto) 4.1, Lymphocytes # (Auto) 0.8L, Monocytes # (Auto) 0.6, Eosinophils # (Auto) 0.0, Basophils # (Auto) 0.0, Immature Granulocyte # (Auto) 0.1, Sodium Level 143, Potassium Level 3.6, Chloride Level 109H, Carbon Dioxide Level 26, Anion Gap 8, Blood Urea Nitrogen 17, Creatinine 0.76, Estimat Glomerular Filtration Rate > 60, BUN/Creatinine Ratio 22, Glucose Level 131H, Calcium Level 8.8, Magnesium Level 1.9 Microbiology 05/08/20 MRSA Screen - Final, Complete MRSA not isolated Procedures NAME: ALECIA REDMAN [employer] REC#: [id number] PT STATUS: ADM IN : 1960 PHYSICIAN: KINGS GARCIA MD ADMIT DATE: 05/08/20 Draft Date of Exam:05/16/20 CHEST 1 VIEW, AP/PA ONLY EXAM: CHEST 1 VIEW, AP/PA ONLY. INDICATION: Pneumothorax. COMPARISON: Chest radiograph 05/15/2020. FINDINGS: Enlarging right pneumothorax occupying approximately 20% of the right hemithorax. This now measures approximately 4.5 cm at the apex, previously 1.3 cm when measured in a similar fashion. Atelectasis in the right midlung. Multifocal airspace opacities in the left lung. Cardiomegaly. Normal central pulmonary vascularity. No pleural effusion. No acute osseous findings. IMPRESSION: 1. Enlarging right pneumothorax now occupying approximately 20% of the right hemithorax. 2. Persistent multifocal airspace opacities in the left lung and perihilar consolidation on the right. 3. The report was called to the patient's nurse Joyce by [email or web address]@10:05 AM. Dictated on workstation # [id number] Dict: 05/16/20 [id number] Trans: 05/16/20 1007 [id number] Interpreted by: SABINA ALMONTE MD Electronically signed by: A/P: Assessment: Enlarging right pneumothorax now occupying approximately 20% of the right hemithorax per CXR of 05-16-20 - managment per medical/surgical services Acute respiratory failure secondary to COVID-19 pneumonia - managed by Dr. Avalos Chest pain nonspecific etiology appeared to be pleuritic in nature Elevation in troponin level, no acute EKG changes or chest pain. Probably type II myocardial infarction secondary to hypoxemia and respiratory failure Frequent PVCs, ventricular trigeminy noted on EKG. Currently improved, probably secondary to hypoxemia Plan: Continue current regimen Management of COVID (+) pneumonia per medical/pulmonary services Management of worsening pneumothorax per pulmonary/surgical services Progress notes from Dr. Cuello and Dr. Esposito reviewed BLAIR SHEEHAN May 16, 2020 11:38
[2020-05-16] MEDS ORDERED: LIDOCAINE 1% INJ 20 ML 20 ML VIAL ONE (11:55)
--- NOTE | 2020-05-16 12:34 | NUR ---
"RD ASSESSMENT PMHx: unknown PMH PT INTERACTION: Note pt is currently in COVID isolation per chart review. Note all diet information for nutrition follow-up is per Katlyn (bill) or per chart review. Katlyn states current appetite appears okay. Note avg PO intake <25% meals x3d, per chart review. Katlyn states no issues with n/v/c/d that she is aware of. Note last BM was 05/15, and pt not currently on bowel regimen per chart review. Est. kcal needs: 2558-7027 kcal | 20-25 kcal/kg Est. Pro needs: 68-85 g Pro | 0.8-1.0 g Pro/kg PES STATEMENT: Inadequate oral intake (NI-2.1) related to loss of appetite, as evidenced by chart review, and avg PO intake <25% x3d. INTERVENTION: Continue with current diet order of CHO 60g/m 3snack diet. Continue with current supplementation order of Ensure Clear with meals TID, for increased kcal intake. Provides 250 kcal and 8 g Pro per serving. Will continue to follow and reassess as pt needs, intake, and status change. Magen MELENDEZ, MS RD LD [phone] cell"
--- NOTE | 2020-05-16 13:33 | Occupational Therapy Eval ---
OT Evaluation-General/PLF Medical Diagnosis Admission Date May 08, 2020 at 20:35 Medical Diagnosis: COVID+ Onset Date: Apr 28, 2020 Therapy Diagnosis Therapy Diagnosis: decreased ADL status, weakness Precautions Precautions/Isolations: Contact Isolation, Droplet Isolation, Fall Prevention Referral Physician: Ludin Shelby Reason: Evaluation/Treatment Medical History Current History Admit from OSH with worsening SOB Social History Home: Single Level Current Living Status: Spouse Entry Into Home: Stairs With Railing Steps Into Home: 2 ADL-Prior Level of Function SCALE: Activities may be completed with or without assistive devices. 3-Cgdvuygbht-azffvrw completes the activity by him/herself with no assistance from a helper. 5-Set-up or Clean-up Assistance-helper sets up or cleans up; patient completes activity. [place] assists only prior to or following the activity. 4-Supervision or Touching Assistance-helper provides verbal cues and/or touching/steadying and/or contact guard assistance as patient completes ac tivity. Assistance may be provided throughout the activity or intermittently. 3-Partial/Moderate Assistance-helper does LESS THAN HALF the effort. [place] lifts, holds or supports trunk or limbs, but provides less than half the effort. 2-Substantial/Maximal Assistance-helper does MORE THAN HALF the effort. [place] lifts or holds trunk or limbs and provides more than half the effort. 5-Ypflxvsei-ftshxm does ALL the effort. Patient does none of the effort to complete the activity. Or, the assistance of 2 or more helpers is required for the patient to complete the activity. If activity was not attempted, code reason: 7-Patient Refused. 9-Not Applicable-not attempted and the patient did not perform the activity before the current illness, exacerbation or injury. 10-Not Attempted due to Environmental Limitations-(lack of equipment, weather restraints, etc.). 88-Not Attempted due to Medical Conditions or Safety Concerns. ADL PLOF Comments Independent with all ADLS including bathing/dressing/cooking/cleaning. Pt indicates he was occasionally using SPC for functional mobility. 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 Mental Status/Objective Patient Orientation: Person, Place, Time, Situation Attachments: Jacksno Catheter, Oxygen Current Glasses/Contacts: Yes Hearing Aids: No Dentures/Partials: Yes Upper Extremity ROM Slightly decreased, ~90 degrees shoulder flexion. Upper Extremity Coordination WFL Upper Extremity Sensation WFL ADL-Treatment Eating (QC): 5 (set up assistance) Toileting Hygiene (QC): 7 Other Treatments Pt laying in bed, agreeable to OT eval/tx. OT educated pt on purpose and benefit of OT, he verbalized understanding. Pt provided information about PLOF and home set up, then participated in UE screen. Pt's lunch tray sitting on tray table untouched, pt states he doesn't have too much of an appetite as he does not have his sense of taste. OT encouraged pt to eat some of his food, he agreed. OT set up tray for pt, he was then able to use utensils to take a few bites of food. Pt agreed to sitting EOB, required CGA supine to sit. Pt states it feels good to sit up on EOB and agreed to transferring to recliner. Pt completed transfer with hand held assistance. OT assisted pt with positioning in recliner. Post tx, pt seated in recliner, call light in reach and all needs met. Education OT Patient Education: Correct positioning, Modified ADL techniques, Progress toward Goal/Update tx plan, Purpose of tx/functional activities, Rehab process Teaching Recipient: Patient Teaching Methods: Discussion Response to Teaching: Verbalize Understanding OT Police Or Patrol Park Officer Goals Nursing Home Goals Time Frame: Jun 02, 2020 Eating (QC): 6 Oral Hygiene (QC): 6 Toileting Hygiene (QC): 6 Shower/Bathe Self (QC): 6 Upper Body Dressing (QC): 6 Lower Body Dressing (QC): 6 On/Off Footwear (QC): 6 Additional Goals: 1-Demonstrate ADL Tasks, 2-Verbalize Understanding, 3- ImproveStrength/Alex 1=Demonstrate adherence to instructed precautions during ADL tasks. 2=Patient will verbalize/demonstrate understanding of assistive devices/modifications for ADL. 3=Patient will improve strength/tolerance for activity to enable patient to perform ADL's. OT Education/Plan Problem List/Assessment Assessment: Decreased Activ Tolerance, Decreased UE Strength, Impaired Funct Balance, Impaired I ADL's, Impaired Self-Care Skills, Restricted Funct UE ROM Discharge Recommendations Plan/Recommendations: Continue POC Treatment Plan/Plan of Care Patient would benefit from OT for education, treatment and training to promote independence in ADL's, mobility, safety and/or upper extremity function for ADL's. Plan of Care: ADL Retraining, Functional Mobility, UE Funct Exercise/Act Treatment Duration: Jun 02, 2020 Frequency: 5 times per week Estimated Hrs Per Day: .25 hour per day Rehab Potential: Fair Time/GCodes Start Time: 13:23 Stop Time: 13:46 Total Time Billed (hr/min): 23 Billed Treatment Time 1, EVM, ANGLE LINARES OT May 16, 2020 13:33
--- NOTE | 2020-05-16 13:42 | Diagnostic Imaging Report ---
INDICATION: Pneumothorax. FINDINGS: Right chest tube projects over the right hemithorax with a significant interval reduction in the right pneumothorax now showing only about 7-8 mm of apical pleural separation previously 45 mm. Right perihilar density unchanged. No adverse development. IMPRESSION: Significant reduction in right pneumothorax following chest tube placement. Dictated by: Dictated on workstation # [id number]
--- NOTE | 2020-05-16 14:24 | Physical Therapy Evaluation ---
PT Evaluation-General Medical Diagnosis Admission Date May 08, 2020 at 20:35 Medical Diagnosis: COVID+ Onset Date: Apr 28, 2020 Therapy Diagnosis Therapy Diagnosis: generalized weakness/debility Precautions Precautions/Isolations: Contact Isolation, Droplet Isolation, Fall Prevention Weight Bear Status Right Lower Extremity: Right Full Weight Bearing Left Lower Extremity: Left Full Weight Bearing Referral Physician: Ludin Reason for Referral: Evaluation/Treatment Medical History Current History direct admit secondary to covid Reviewed History: Yes Social History Home: Single Level Current Living Status: Spouse Entry Into Home: Stairs With Railing PT Steps Into Home: 2 Prior Prior Level of Function SCALE: Activities may be completed with or without assistive devices. 4-Tatwkyytra-rvokpnn completes the activity by him/herself with no assistance from a helper. 5-Set-up or Clean-up Assistance-helper sets up or cleans up; patient completes activity. [place] assists only prior to or following the activity. 4-Supervision or Touching Assistance-helper provides verbal cues and/or touching/steadying and/or contact guard assistance as patient completes activity. Assistance may be provided throughout the activity or intermittently. 3-Partial/Moderate Assistance-helper does LESS THAN HALF the effort. [place] lifts, holds or supports trunk or limbs, but provides less than half the effort. 2-Substantial/Maximal Assistance-helper does MORE THAN HALF the effort. [place] lifts or holds trunk or limbs and provides more than half the effort. 6-Zdsdjrnbv-iefutw does ALL the effort. Patient does none of the effort to complete the activity. Or, the assistance of 2 or more helpers is required for the patient to complete the activity. If activity was not attempted, code reason: 7-Patient Refused. 9-Not Applicable-not attempted and the patient did not perform the activity before the current illness, exacerbation or injury. 10-Not Attempted due to Environmental Limitations-(lack of equipment, weather restraints, etc.). 88-Not Attempted due to Medical Conditions or Safety Concerns. Bed Mobility: 6 Transfers (B,C,W/C): 6 Gait: 6 Stairs: 6 Indoor Mobility (Ambulation): Independent Stairs: Independent Prior Devices Use: None PT Evaluation-Current Subjective Patient agrees to PT. Noted confusion on this date. Objective Patient Orientation: Confused Attachments: Chest Tube, Oxygen, [place] Catheter ROM/Strength ROM Lower Extremities bilateral LE WFL Strength Lower Extremities 4-/5 grossly bilateral LE Integumentary/Posture Integumentary refer to nursing notes Bowel Incontinence: No Bladder Incontinence: [place] Cath Posture WFL Neuromuscular (Tone, Coordination, Reflexes) grossly intact Sensory Vision: Functional Hearing: Functional Transfers Sit to Lying (QC): 4 Lying to Sitting/Side of Bed(Q: 4 Sit to Stand (QC): 4 Chair/Elo-pf-Fwtbt Xfer(QC): 4 Gait Does the Patient Walk?: Yes Mode of Locomotion: Walk Anticipated Mode of Locomotion: Walk Walk 10 feet (QC): 4 Walk 50 ft with 2 Turns(QC): 4 Walk 150 ft (QC): 4 Distance: 150' Gait Assistive Device: None Comments/Gait Description slightly unsteady with self correct. Balance Sitting Static: Normal Sitting Dynamic: Normal Standing Static: Fair Standing Dynamic: Fair Treatment noted increase SOA with minimal activity. Chest tube in place Assessment/Needs 60 y.o. male, will benefit from skilled PT to address functional strength and mobility to address pulmonary function to ensure safe return to home. Rehab Potential: Fair Post Rehab Potential-Barriers: pulmonary function PT Senior Care Goals Senior Care Goals PT Senior Care Goals Time Frame: Jun 03, 2020 Roll Left & Right (QC): 6 Sit to Lying (QC): 6 Lying-Sitting on Side/Bed(QC): 6 Sit to Stand (QC): 6 Chair/Kfx-gj-Ikygb Xfer(QC): 6 Toilet Transfer (QC): 6 Does the Patient Walk: Yes Walk 10 feet (QC): 6 Walk 50ft with 2 Turns (QC): 6 Walk 150 ft (QC): 6 PT Plan Problem List Problem List: Activity Tolerance, Functional Strength, Safety, Balance, Gait Treatment/Plan Treatment Plan: Continue Plan of Care Treatment Plan: Bed Mobility, Education, Functional Activity Alex, Functional Strength, Gait, Safety, Therapeutic Exercise, Transfers Treatment Duration: Jun 03, 2020 Frequency: 6 times per week Estimated Hrs Per Day: .25 hour per day Patient and/or Family Agrees t: Yes Discharge Recommendations Therapy Discharge Recommendati: Home & Family Time/GCodes Time In: 1350 Time Out: 1403 Total Billed Treatment Time: 13 Total Billed Treatment 1 visit EVMod 13 min LEANDRA PARTIDA PT May 16, 2020 14:24
--- NOTE | 2020-05-16 17:31 | Progress Note-Post Operative ---
Post-Operative Progess Note Surgeon (s)/Cylinder Tester (s) Surgeon IRENA DENSON DO Cylinder Tester: none Pre-Operative Diagnosis pnuemothorax Post-Operative Diagnosis same plus some pleural effusion Procedure & Operative Findings Date of Procedure 05/16/20 Procedure Performed/Findings CT insertion Anesthesia Type Local lidocaine Estimated Blood Loss Estimated blood loss (mL): scant Specimens/Packing Specimens Removed pleural fluid IRENA DENSON DO May 16, 2020 17:31
--- NOTE | 2020-05-16 19:38 | Progress Note - Surgery ---
Subjective Time Seen by a Provider: 12:00 Subjective/Events-last exam Pt seen and examined, he is complaining of some right sided chest pain and increased SOB. CXR from today shows increase in PTX. Review of Systems General: Night Sweats, Fatigue Pulmonary: Dyspnea; No Cough; Pleuritic Chest Pain Cardiovascular: No: Palpitations, Orthopnea Gastrointestinal: No: Nausea, Vomiting, Abdominal Pain Objective Exam Vital Signs Date Time Temp Pulse Resp B/P (MAP) Pulse Ox O2 Delivery O2 Flow Rate FiO2 05/16/20 16:19 36.2 90 18 106/60 (75) 90 Nasal Cannula 2.00 05/16/20 13:39 36.5 74 18 127/73 (91) 91 Nasal Cannula 1.00 05/16/20 12:00 35.6 72 19 147/80 (102) 91 Nasal Cannula 1.00 05/16/20 11:06 Nasal Cannula 2.00 05/16/20 09:00 94 Nasal Cannula 2.00 05/16/20 07:30 35.6 72 19 147/80 (102) 91 Nasal Cannula 1.00 05/16/20 03:36 37.0 67 20 133/75 (94) 93 Nasal Cannula 2.00 05/16/20 00:24 36.2 71 20 132/85 (101) 91 Nasal Cannula 1.00 05/15/20 21:00 94 Nasal Cannula 1.00 I & O 05/16/20 07:00 Intake Total 1360 ml Output Total 1525 ml Balance -165 ml Capillary Refill : Less Than 3 Seconds General Appearance: WD/WN, Mild Distress HEENT: PERRL/EOMI Respiratory: No Respiratory Distress, Decreased Breath Sounds (right side, ??hyperresonance) Cardiovascular: Regular Rate, Rhythm, No Edema, No Murmur Gastrointestinal: non tender, soft, no organomegaly Neurologic/Psychiatric: Alert, Oriented x3 Skin: Normal Color, Diaphoresis (seen mostly on face) Results Lab Laboratory Tests 05/16/20 05:29: White Blood Count 5.6, Red Blood Count 4.70, Hemoglobin 13.7, Hematocrit 42, Mean Corpuscular Volume 90, Mean Corpuscular Hemoglobin 29, Mean Corpuscular Hemoglobin Concent 33, Red Cell Distribution Width 12.6, Platelet Count 492H, Mean Platelet Volume 10.5, Immature Granulocyte % (Auto) 2, Neutrophils (%) (Auto) 73, Lymphocytes (%) (Auto) 14, Monocytes (%) (Auto) 10, Eosinophils (%) (Auto) 0, Basophils (%) (Auto) 0, Neutrophils # (Auto) 4.1, Lymphocytes # (Auto) 0.8L, Monocytes # (Auto) 0.6, Eosinophils # (Auto) 0.0, Basophils # (Auto) 0.0, Immature Granulocyte # (Auto) 0.1, Sodium Level 143, Potassium Level 3.6, Chloride Level 109H, Carbon Dioxide Level 26, Anion Gap 8, Blood Urea Nitrogen 17, Creatinine 0.76, Estimat Glomerular Filtration Rate > 60, BUN/Creatinine Ratio 22, Glucose Level 131H, Calcium Level 8.8, Magnesium Level 1.9 Microbiology 05/08/20 MRSA Screen - Final, Complete MRSA not isolated Assessment/Plan Assessment/Plan Assessment/Plan Pneumothorax - worsened Covid-19 Resp Failure Pneumothorax is worse today and it looks like pt will now need chest tube to remove air. Discussed the procedure with the pt; risks and complications not limited to pain, bleeding, infection and damage to lung. His first question was whether I had done one before. All questions answered to his satisfaction. IRENA DENSON DO May 16, 2020 19:38
[2020-05-16] MEDS: ALPRAZolam 0.5 MG (XANAX) TAB PO PRN (20:20)
[2020-05-16] MEDS: ENOXAPARIN 80 MG/0.8 ML (LOVENOX) SYR SC SCH (20:20)
[2020-05-16] MEDS: IBUPROFEN TABLET 200 MG TAB PO PRN (20:21)
--- NOTE | 2020-05-17 00:14 | OPERATIVE REPORT ---
DATE OF SERVICE: PREOPERATIVE DIAGNOSIS: Pneumothorax. POSTOPERATIVE DIAGNOSES: Pneumothorax plus pleural effusion. PROCEDURE: Insertion of chest tube. SURGEON: Chris Olmos DO MACHINE OPERATOR HOP WORKER: None. ANESTHESIA: Local lidocaine. BLOOD LOSS: None. FLUIDS: None. SPECIMEN: Some pleural fluid. INDICATION FOR PROCEDURE: The patient is a 60-year-old male, who has a small pneumothorax was actually had gotten better yesterday and then got worse today and he started having chest pain and shortness of breath. FINDINGS: The patient had a pneumothorax also had some pleural effusion, sent the pleural effusion for culture. PROCEDURE NOTE: After informed consent was obtained, the patient was in his bed. He was sterilely prepped and draped in normal fashion. The right anterior chest wall. The site had been marked, timeout was performed. This was where the pneumothorax was infiltrated just above the 4th or 5th rib with some local and then down towards the rib and then on top of the rib. Then, made a stab incision with #11 blade and then gently advanced the chest tube, the Thora-Vent with a trocar gently over the top of the rib and then able to puncture through and then advanced the catheter without any difficulty. Hooked up the 2-way valve and then suctioned out about 15 times, suctioned out 60 mL syringe and the last 4 or 5 times got out some fluid. Elected to send this fluid for culture and then got out about 20 mL and then could not draw back. This is felt like the lung was now reexpanded, remove this 2-way valve, put the cap Thora-Vent. It was then taped down. The Thora-Vent taped in place. The patient felt like his chest pain was gone and he could breathe easier. Sponge, instrument and needle count correct at the end of the case. A stat chest x-ray ordered. Job ID: [id number] DocumentID: [id number] Dictated Date: 05/16/2020 19:15:49 Market Analyst Date: 05/17/2020 00:14:06 Dictated By: CHRIS OLMOS DO
[2020-05-17] MEDS: oxyCODONE/APAP 10/325MG (PERCOCET 10) TABLET PO PRN ×3 (00:43→17:30)
[2020-05-17 06:32] LABS: BASOPHILS % (AUTO) 0 % (0-10); EOSINOPHILS # (AUTO) 0.1 10^3/uL (0.0-0.3); EOSINOPHILS % (AUTO) 1 % (0-10); HEMATOCRIT 40 % (40-54); LYMPHOCYTES # (AUTO) 1.3 10^3/uL (1.0-4.0); LYMPHOCYTES % (AUTO) 15 % (12-44); MEAN CORPUSCULAR HEMOGLOBIN 30 pg (25-34); MEAN CORPUSCULAR HGB CONC 32 g/dL (32-36); MEAN CORPUSCULAR VOLUME 91 fL (80-99); MEAN PLATELET VOLUME 11.3 fL (9.0-12.2); MONOCYTES # (AUTO) 0.9 10^3/uL (0.0-1.0); MONOCYTES % (AUTO) 11 % (0-12); NEUTROPHILS # (AUTO) 5.9 10^3/uL (1.8-7.8); NEUTROPHILS % (AUTO) 72 % (42-75); PLATELET COUNT 427 10^3/uL (130-400); WHITE BLOOD COUNT 8.2 10^3/uL (4.3-11.0)
[2020-05-17] MEDS: CATHETER FLUSH 10 ML SYR IV SCH ×3 (06:34→20:54)
[2020-05-17 06:45] LABS: CHLORIDE 109 MMOL/L (98-107); POTASSIUM 3.8 MMOL/L (3.6-5.0); SODIUM 141 MMOL/L (135-145)
[2020-05-17 06:46] LABS: CALCIUM 8.6 MG/DL (8.5-10.1)
[2020-05-17 06:47] LABS: GLUCOSE 119 MG/DL (70-105)
[2020-05-17 06:48] LABS: CARBON DIOXIDE 24 MMOL/L (21-32)
[2020-05-17] MEDS: POTASSIUM CL 10MEQ/50ML IVPB 50 ML IV SCH (06:50)
[2020-05-17] MEDS: MAGNESIUM 1 GM/100 ML IVPB 100 ML IV SCH (06:50)
[2020-05-17 06:51] LABS: CREATININE SERUM 0.78 MG/DL (0.60-1.30); GFR ESTIMATED > 60
[2020-05-17 06:52] LABS: BUN/CREATININE RATIO 31
[2020-05-17] MEDS: ASPIRIN 81 MG CHEW (CHILDREN'S ASA) PO SCH (09:01)
[2020-05-17] MEDS: lisINopril 10 MG (PRINIVIL) TABLET PO SCH (09:02)
[2020-05-17] MEDS: PANTOPRAZOLE 40 MG (PROTONIX) TAB PO SCH (09:02)
[2020-05-17] MEDS: dexAMETHasone 6 MG TAB (DECADRON) PO SCH (09:02)
[2020-05-17] MEDS: ENOXAPARIN 80 MG/0.8 ML (LOVENOX) SYR SC SCH ×2 (09:02→20:54)
[2020-05-17] MEDS: meTOprolol TARTRATE 25 MG (LOPRESSOR) TABLET PO SCH ×2 (09:02→20:53)
--- NOTE | 2020-05-17 10:56 | Progress Note - Hospitalist ---
Subjective HPI/CC On Admission Date Seen by Provider: May 17, 2020 Time Seen by Provider: 09:55 Subjective/Events-last exam He is feeling better. He is still short of breath and has a cough. He is not having any fevers. Objective Exam Vital Signs Vital Signs Date Time Temp Pulse Resp B/P (MAP) Pulse Ox O2 Delivery O2 Flow Rate FiO2 05/17/20 09:17 Nasal Cannula 3.00 05/17/20 09:10 115 87 05/17/20 07:58 37.6 18 124/67 (86) 05/14/20 21:12 40 Capillary Refill : Less Than 3 Seconds General Appearance: No Apparent Distress, WD/WN Respiratory: Lungs Clear, Normal Breath Sounds, No Respiratory Distress, Other (right-sided Thora-Vent in place) Cardiovascular: Regular Rate, Rhythm, No Edema, No Murmur Gastrointestinal: Normal Bowel Sounds, Non Tender, Soft Extremity: Normal Inspection, Non Tender, No Pedal Edema Neurologic/Psychiatric: Alert, Oriented x3, No Motor/Sensory Deficits, Normal Mood/Affect Skin: Normal Color, Warm/Dry Results/Procedures Lab Laboratory Tests 05/17/20 05:40 Patient resulted labs reviewed. Imaging: Reviewed Imaging Report Assessment/Plan Assessment and Plan Assess & Plan/Chief Complaint Pneumothorax Surgery following, appreciate assistance Thora-Vent in place Acute respiratory failure due to COVID-19 Decadron s/p convalescent plasma Oxygen requirement improving Hypercoagulable state associated with COVID-19 CTA negative for PE Therapeutic Lovenox PNA s/p Rocephin and Azithromycin HTN Continue Lisinopril and Metoprolol NSTEMI, type II Cardiology following, appreciate assistance Agitation, resolved Diagnosis/Problems Diagnosis/Problems (1) Pneumothorax Status: Acute (2) Acute respiratory failure due to COVID-19 Status: Acute (3) Hypercoagulable state associated with COVID-19 Status: Acute (4) PNA (pneumonia) Status: Resolved Resolution Date/Time: 05/16/20 @ 11:21 (5) HTN (hypertension) Status: Chronic Qualifiers: Hypertension type: essential hypertension Qualified Codes: I10 - Essential (primary) hypertension KINGS GARCIA MD May 17, 2020 10:56
--- NOTE | 2020-05-17 11:32 | Diagnostic Imaging Report ---
INDICATION: Pneumothorax. COMPARISON: Correlation is made with the study of one day prior. FINDINGS: The right chest tube radiographically is unchanged. The abnormal right perihilar density is redemonstrated. There is some infiltrate or atelectasis in the periphery of the mid left lung. A tiny right apical pneumothorax is barely perceptible of less than 1 cm. IMPRESSION: Abnormal right perihilar density. Minute right apical pneumothorax. Atelectasis or nonspecific infiltrate in the left lung noted. Dictated by: Dictated on workstation # [id number]
--- NOTE | 2020-05-17 13:28 | Occupational Ther Daily Note ---
OT Current Status-Daily Note Subjective Pt alert, sitting in recliner. Pt agrees to therapy. No c/o pain at this time. Mental Status/Objective Patient Orientation: Person, Place, Time, Situation Attachments: IV ADL-Treatment Pt able to don/doff socks independent after set up. Pt ambulated without AD to bathroom with CGA. Pt stood at sink to complete oral care and grooming with SBA. Pt then ambulated back to recliner. After session, pt sitting in recliner with call light/phone in reach. All needs met in room. Therapy Code Descriptions/Definitions Functional [place] Measure: 0=Not Assessed/NA 4=Minimal Assistance 1=Total Assistance 5=Supervision or Setup 2=Maximal Assistance 6=Modified [place] 3=Moderate Assistance 7=Complete IndependenceSCALE: Activities may be completed with or without assistive devices. 7-Eytbperqzq-mjbryvn completes the activity by him/herself with no assistance from a helper. 5-Set-up or Clean-up Assistance-helper sets up or cleans up; patient completes activity. [place] assists only prior to or following the activity. 4-Supervision or Touching Assistance-helper provides verbal cues and/or touching/steadying and/or contact guard assistance as patient completes activity. Assistance may be provided throughout the activity or intermittently. 3-Partial/Moderate Assistance-helper does LESS THAN HALF the effort. [place] lifts, holds or supports trunk or limbs, but provides less than half the effort. 2-Substantial/Maximal Assistance-helper does MORE THAN HALF the effort. [place] lifts or holds trunk or limbs and provides more than half the effort. 5-Stehhbkdb-yrqchu does ALL the effort. Patient does none of the effort to complete the activity. Or, the assistance of 2 or more helpers is required for the patient to complete the activity. If activity was not attempted, code reason: 7-Patient Refused. 9-Not Applicable-not attempted and the patient did not perform the activity before the current illness, exacerbation or injury. 10-Not Attempted due to Environmental Limitations-(lack of equipment, weather restraints, etc.). 88-Not Attempted due to Medical Conditions or Safety Concerns. Oral Hygiene (QC): 4 On/Off Footwear: 5 OT Copyright Clerk Goals Copyright Clerk Goals Time Frame: Jun 02, 2020 Eating (QC): 6 Oral Hygiene (QC): 6 Toileting Hygiene (QC): 6 Shower/Bathe Self (QC): 6 Upper Body Dressing (QC): 6 Lower Body Dressing (QC): 6 On/Off Footwear (QC): 6 Additional Goals: 1-Demonstrate ADL Tasks, 2-Verbalize Understanding, 3- ImproveStrength/Alex 1=Demonstrate adherence to instructed precautions during ADL tasks. 2=Patient will verbalize/demonstrate understanding of assistive devices/modifications for ADL. 3=Patient will improve strength/tolerance for activity to enable patient to perform ADL's. OT Education/Plan Problem List/Assessment Assessment: Decreased Activ Tolerance Discharge Recommendations Plan/Recommendations: Continue POC Treatment Plan/Plan of Care Patient would benefit from OT for education, treatment and training to promote independence in ADL's, mobility, safety and/or upper extremity function for ADL's. Plan of Care: ADL Retraining, Functional Mobility, UE Funct Exercise/Act Treatment Duration: Jun 02, 2020 Frequency: 5 times per week Estimated Hrs Per Day: .25 hour per day Rehab Potential: Fair Time/GCodes Start Time: 10:50 Stop Time: 11:13 Total Time Billed (hr/min): 23 Billed Treatment Time 1 visit-ADL 2 (23 min) VIKTOR JORGE May 17, 2020 13:28
[2020-05-17] MEDS: IBUPROFEN TABLET 200 MG TAB PO PRN (14:04)
--- NOTE | 2020-05-17 14:19 | Physical Therapy Daily Note ---
PT Daily Note-Current Subjective Patient sitting EOB pre tx, agrees to PT, has no complaints of pain. Appearance Patient sitting EOB post tx with nurse call, phone, tray, all needs met. Mental Status Patient Orientation: Person, Place, Situation Attachments: Oxygen Transfers SCALE: Activities may be completed with or without assistive devices. 8-Deycrbnlbh-srjvflu completes the activity by him/herself with no assistance from a helper. 5-Set-up or Clean-up Assistance-helper sets up or cleans up; patient completes activity. [place] assists only prior to or following the activity. 4-Supervision or Touching Assistance-helper provides verbal cues and/or touching/steadying and/or contact guard assistance as patient completes activity. Assistance may be provided throughout the activity or intermittently. 3-Partial/Moderate Assistance-helper does LESS THAN HALF the effort. [place] lifts, holds or supports trunk or limbs, but provides less than half the effort. 2-Substantial/Maximal Assistance-helper does MORE THAN HALF the effort. [place] lifts or holds trunk or limbs and provides more than half the effort. 8-Cjnwjgfot-orezsr does ALL the effort. Patient does none of the effort to complete the activity. Or, the assistance of 2 or more helpers is required for the patient to complete the activity. If activity was not attempted, code reason: 7-Patient Refused. 9-Not Applicable-not attempted and the patient did not perform the activity before the current illness, exacerbation or injury. 10-Not Attempted due to Environmental Limitations-(lack of equipment, weather restraints, etc.). 88-Not Attempted due to Medical Conditions or Safety Concerns. Sit to Stand (QC): 6 Weight Bearing Right Lower Extremity: Right Full Weight Bearing Left Lower Extremity: Left Full Weight Bearing Gait Training Distance: 150' Walk 10 feet (QC): 4 Walk 50 ft with 2 Turns(QC): 4 Walk 150 ft (QC): 4 Gait Persons Needed: 1 Gait Assistive Device: None SBA, occasional slight unsteadiness but no LOB Exercises Seated Therapy Exercises: Ankle pumps, Long arc quads Seated Reps: 20 Standing: Mini squats Standing Reps: 20 Treatments transfers, ambulation, LE exercise Assessment Current Status: Fair Progress no assistance needed with ambulation but has occasional moments of unsteadiness but no complete LOB PT Long-Term Goals Long-Term Goals PT Long-Term Goals Time Frame: Jun 03, 2020 Roll Left & Right (QC): 6 Sit to Lying (QC): 6 Lying-Sitting on Side/Bed(QC): 6 Sit to Stand (QC): 6 Chair/Sva-vq-Rsozh Xfer(QC): 6 Toilet Transfer (QC): 6 Does the Patient Walk: Yes Walk 10 feet (QC): 6 Walk 50ft with 2 Turns (QC): 6 Walk 150 ft (QC): 6 PT Plan Problem List Problem List: Activity Tolerance, Functional Strength, Safety, Balance, Gait, Transfer Treatment/Plan Treatment Plan: Continue Plan of Care Treatment Plan: Bed Mobility, Education, Functional Activity Alex, Functional Strength, Gait, Safety, Therapeutic Exercise, Transfers Treatment Duration: Jun 03, 2020 Frequency: 6 times per week Estimated Hrs Per Day: .25 hour per day Patient and/or Family Agrees t: Yes Safety Risks/Education Patient Education: Gait Training, Transfer Techniques, Correct Positioning, Safety Issues Teaching Recipient: Patient Teaching Methods: Demonstration, Discussion Response to Teaching: Reinforcement Needed Time/GCodes Time In: 1324 Time Out: 1335 Total Billed Treatment Time: 11 Total Billed Treatment 1 visit GT 11' DARIANA HUGGINS PT May 17, 2020 14:18
--- NOTE | 2020-05-17 15:48 | Progress Note - Surgery ---
Subjective Time Seen by a Provider: 10:41 Subjective/Events-last exam Pt seen and examined, he was having some trouble breathing and had to get put back on O2. Pt states he does have some mild right sided chest pain. Thinks he is still better than before CT placement, but not as good as right after. Tolerating diet. Review of Systems General: No Chills Pulmonary: Dyspnea, Cough Gastrointestinal: No: Nausea, Vomiting, Abdominal Pain Objective Exam Vital Signs Date Time Temp Pulse Resp B/P (MAP) Pulse Ox O2 Delivery O2 Flow Rate FiO2 05/17/20 15:15 Nasal Cannula 3.00 05/17/20 13:58 78 112/64 (80) 91 Nasal Cannula 3.00 05/17/20 12:19 35.6 60 20 96/50 (65) 94 Nasal Cannula 3.00 05/17/20 09:17 Nasal Cannula 3.00 05/17/20 09:10 115 87 Room Air 05/17/20 07:58 37.6 71 18 124/67 (86) 91 Nasal Cannula 3.00 05/17/20 04:29 35.8 70 18 114/68 (83) 95 Nasal Cannula 3.00 05/16/20 23:48 36.0 88 18 120/75 (90) 94 Nasal Cannula 3.00 05/16/20 20:25 Nasal Cannula 2.00 05/16/20 19:52 35.6 90 20 97/64 (75) 91 Nasal Cannula 3.00 05/16/20 16:19 36.2 90 18 106/60 (75) 90 Nasal Cannula 2.00 I & O 05/17/20 07:00 Intake Total 1800 ml Output Total 500 ml Balance 1300 ml Capillary Refill : Less Than 3 Seconds General Appearance: No Apparent Distress, WD/WN HEENT: PERRL/EOMI Respiratory: Lungs Clear, Normal Breath Sounds, No Respiratory Distress, Other (right-sided Thora-Vent in place) Cardiovascular: Regular Rate, Rhythm, No Edema, No Murmur Gastrointestinal: non tender, soft, no organomegaly Results Lab Laboratory Tests 05/17/20 05:40: White Blood Count 8.2, Red Blood Count 4.40, Hemoglobin 13.0L, Hematocrit 40, Mean Corpuscular Volume 91, Mean Corpuscular Hemoglobin 30, Mean Corpuscular Hemoglobin Concent 32, Red Cell Distribution Width 12.9, Platelet Count 427H, Mean Platelet Volume 11.3, Immature Granulocyte % (Auto) 1, Neutrophils (%) (Auto) 72, Lymphocytes (%) (Auto) 15, Monocytes (%) (Auto) 11, Eosinophils (%) (Auto) 1, Basophils (%) (Auto) 0, Neutrophils # (Auto) 5.9, Lymphocytes # (Auto) 1.3, Monocytes # (Auto) 0.9, Eosinophils # (Auto) 0.1, Basophils # (Auto) 0.0, Immature Granulocyte # (Auto) 0.1, Sodium Level 141, Potassium Level 3.8, Chloride Level 109H, Carbon Dioxide Level 24, Anion Gap 8, Blood Urea Nitrogen 24H, Creatinine 0.78, Estimat Glomerular Filtration Rate > 60, BUN/Creatinine Ratio 31, Glucose Level 119H, Calcium Level 8.6 Microbiology 05/16/20 Gram Stain - Final, Resulted 05/16/20 Body Fluid Culture, Resulted Pending 05/08/20 MRSA Screen - Final, Complete MRSA not isolated Assessment/Plan Assessment/Plan Assessment/Plan Pneumothorax - improved after CT insertion, ??better today at least the same after CT insertion Covid-19 Resp Failure -improved Pneumothorax is very minimal on today's CXR, did have some fluid in Thoravent; suctioned out appx 5ml of serosanguinous fluid. Repeat CXR tomorrow, O2 as needed. Pt given IS to use 10 x Q 1 hour while awake. IRENA DENSON DO May 17, 2020 15:48
[2020-05-17] MEDS: risperiDONE 0.5 MG (RisperDAL) TABLET PO PRN (20:56)
[2020-05-18] MEDS: oxyCODONE/APAP 10/325MG (PERCOCET 10) TABLET PO PRN ×3 (01:47→19:57)
[2020-05-18] MEDS: CATHETER FLUSH 10 ML SYR IV SCH ×3 (06:37→19:57)
[2020-05-18] MEDS: POTASSIUM CL 10MEQ/50ML IVPB 50 ML IV SCH (07:43)
[2020-05-18] MEDS: MAGNESIUM 1 GM/100 ML IVPB 100 ML IV SCH (07:44)
[2020-05-18 07:56] LABS: BASOPHILS % (AUTO) 0 % (0-10); EOSINOPHILS # (AUTO) 0.2 10^3/uL (0.0-0.3); EOSINOPHILS % (AUTO) 2 % (0-10); HEMATOCRIT 41 % (40-54); HEMOGLOBIN 13.2 g/dL (13.3-17.7); LYMPHOCYTES # (AUTO) 2.1 10^3/uL (1.0-4.0); LYMPHOCYTES % (AUTO) 24 % (12-44); MEAN CORPUSCULAR HEMOGLOBIN 29 pg (25-34); MEAN CORPUSCULAR HGB CONC 32 g/dL (32-36); MEAN CORPUSCULAR VOLUME 91 fL (80-99); MONOCYTES # (AUTO) 0.9 10^3/uL (0.0-1.0); MONOCYTES % (AUTO) 9 % (0-12); NEUTROPHILS # (AUTO) 5.7 10^3/uL (1.8-7.8); NEUTROPHILS % (AUTO) 63 % (42-75); PLATELET COUNT 400 10^3/uL (130-400)
[2020-05-18 08:06] LABS: CHLORIDE 107 MMOL/L (98-107); POTASSIUM 3.4 MMOL/L (3.6-5.0); SODIUM 141 MMOL/L (135-145)
[2020-05-18 08:07] LABS: CALCIUM 8.9 MG/DL (8.5-10.1)
[2020-05-18 08:08] LABS: GLUCOSE 106 MG/DL (70-105)
[2020-05-18 08:09] LABS: CARBON DIOXIDE 23 MMOL/L (21-32)
[2020-05-18 08:12] LABS: CREATININE SERUM 0.87 MG/DL (0.60-1.30); GFR ESTIMATED > 60
[2020-05-18 08:13] LABS: BUN/CREATININE RATIO 30
[2020-05-18] MEDS: lisINopril 10 MG (PRINIVIL) TABLET PO SCH (08:25)
[2020-05-18] MEDS: ASPIRIN 81 MG CHEW (CHILDREN'S ASA) PO SCH (08:25)
[2020-05-18] MEDS: dexAMETHasone 6 MG TAB (DECADRON) PO SCH (08:25)
[2020-05-18] MEDS: meTOprolol TARTRATE 25 MG (LOPRESSOR) TABLET PO SCH ×2 (08:25→19:57)
[2020-05-18] MEDS: PANTOPRAZOLE 40 MG (PROTONIX) TAB PO SCH (08:25)
[2020-05-18] MEDS: ENOXAPARIN 80 MG/0.8 ML (LOVENOX) SYR SC SCH (08:26)
[2020-05-18] MEDS ORDERED: KCL 20 MEQ TAB (K-DUR) PO NR (08:30)
--- NOTE | 2020-05-18 10:17 | Diagnostic Imaging Report ---
INDICATION: Pneumothorax. Comparison evaluation 05/17/2020. FINDINGS: There is cardiomegaly. There is bibasilar atelectasis and/or pneumonitis. Some venous congestion. Small bore right thoracostomy tube remains in place. Mediastinum is unremarkable. There is no residual pneumothorax. IMPRESSION: Patchy bilateral pulmonary infiltrates. Cardiomegaly and some central pulmonary venous congestion. Dictated by: Dictated on workstation # [id number]
--- NOTE | 2020-05-18 10:50 | Progress Note - Surgery ---
Subjective Time Seen by a Provider: 10:44 Subjective/Events-last exam Pt seen and examined, states he is feeling very good today. Denies SOB and chest pain, tolerating diet. Review of Systems General: No Chills, No Night Sweats Pulmonary: No Dyspnea, No Cough Cardiovascular: No: Chest Pain, Palpitations Gastrointestinal: No: Nausea, Vomiting, Abdominal Pain Objective Exam Vital Signs Date Time Temp Pulse Resp B/P (MAP) Pulse Ox O2 Delivery O2 Flow Rate FiO2 05/18/20 09:56 Nasal Cannula 3.00 05/18/20 09:54 Nasal Cannula 3.00 05/18/20 08:04 35.0 74 20 124/68 (86) 92 Nasal Cannula 3.00 05/18/20 03:06 35.7 72 20 126/66 (86) 94 Nasal Cannula 3.00 05/17/20 23:56 35.9 62 22 117/70 (86) 94 Nasal Cannula 3.00 05/17/20 21:00 Nasal Cannula 3.00 05/17/20 20:00 36.0 83 22 117/57 (77) 93 Nasal Cannula 3.00 05/17/20 16:17 36.0 94 22 113/56 (75) 94 Nasal Cannula 3.00 05/17/20 15:15 Nasal Cannula 3.00 05/17/20 13:58 78 112/64 (80) 91 Nasal Cannula 3.00 05/17/20 12:19 35.6 60 20 96/50 (65) 94 Nasal Cannula 3.00 I & O 05/18/20 07:00 Intake Total 1780 ml Output Total 1625 ml Balance 155 ml Capillary Refill : Less Than 3 Seconds General Appearance: No Apparent Distress, WD/WN HEENT: PERRL/EOMI Respiratory: Lungs Clear, Normal Breath Sounds, No Respiratory Distress, Other (right-sided Thora-Vent in place) Cardiovascular: Regular Rate, Rhythm, No Edema, No Murmur Gastrointestinal: non tender, soft, no organomegaly Results Lab Laboratory Tests 05/18/20 07:42: White Blood Count 9.0, Red Blood Count 4.52, Hemoglobin 13.2L, Hematocrit 41, Mean Corpuscular Volume 91, Mean Corpuscular Hemoglobin 29, Mean Corpuscular Hemoglobin Concent 32, Red Cell Distribution Width 13.0, Platelet Count 400, Mean Platelet Volume 11.0, Immature Granulocyte % (Auto) 2, Neutrophils (%) (Auto) 63, Lymphocytes (%) (Auto) 24, Monocytes (%) (Auto) 9, Eosinophils (%) (Auto) 2, Basophils (%) (Auto) 0, Neutrophils # (Auto) 5.7, Lymphocytes # (Auto) 2.1, Monocytes # (Auto) 0.9, Eosinophils # (Auto) 0.2, Basophils # (Auto) 0.0, Immature Granulocyte # (Auto) 0.2H, Sodium Level 141, Potassium Level 3.4L, Chloride Level 107, Carbon Dioxide Level 23, Anion Gap 11, Blood Urea Nitrogen 26H, Creatinine 0.87, Estimat Glomerular Filtration Rate > 60, BUN/Creatinine Ratio 30, Glucose Level 106H, Calcium Level 8.9 Microbiology 05/16/20 Gram Stain - Final, Resulted 05/16/20 Body Fluid Culture - Preliminary, Resulted No growth 05/08/20 MRSA Screen - Final, Complete MRSA not isolated Assessment/Plan Assessment/Plan Assessment/Plan Pneumothorax - appears resolved today on CXR Covid-19 Pneumonia When pt coughs it appears like some air leaks out and still has some fluid in Thoravent; suctioned out appx 2ml of serosanguinous fluid. Repeat CXR tomorrow, O2 as needed. Pt given IS to use 10 x Q 1 hour while awake. If tomorrow's CXR shows no PTX will d/c Thoravent tomorrow and send home. IRENA DENSON DO May 18, 2020 10:50
--- NOTE | 2020-05-18 13:16 | Physical Therapy Progress Note ---
Therapy Progress Note Patient reports he is much better and has been up independently in room without difficulty. Patient declined to continue PT. PT to dismiss patient from services at this time. RN notified. 1 visit([id number]) LEANDRA PARTIDA PT May 18, 2020 13:16
--- NOTE | 2020-05-18 13:53 | Occ Therapy Progress Note ---
Therapy Progress Note Pt. has been up independently in room with no LOB. Yesterday, he was able to complete LE dressing/footwear with [place], and all other tasks at sink with SBA only due to standing balance safety. Today, since he is independent in room and will no longer be requiring PT, OT will dismiss as well, as balance and mobility are no longer a factor. No further OT needs warranted at this time. 1353 EM SNOW OT May 18, 2020 13:53
--- NOTE | 2020-05-18 14:23 | Progress Note - Hospitalist ---
Subjective HPI/CC On Admission Date Seen by Provider: May 18, 2020 Time Seen by Provider: 10:40 Subjective/Events-last exam He is feeling about the same. He denies shortness of breath. He denies fevers. He has no other complaints or concerns. Objective Exam Vital Signs Vital Signs Date Time Temp Pulse Resp B/P (MAP) Pulse Ox O2 Delivery O2 Flow Rate FiO2 05/18/20 12:00 36.1 71 20 115/62 (79) 92 Nasal Cannula 3.00 05/14/20 21:12 40 Capillary Refill : Less Than 3 Seconds General Appearance: No Apparent Distress, WD/WN Respiratory: Lungs Clear, Normal Breath Sounds, No Respiratory Distress Cardiovascular: Regular Rate, Rhythm, No Edema, No Murmur Gastrointestinal: Normal Bowel Sounds, Non Tender, Soft Extremity: Normal Inspection, Non Tender, No Pedal Edema Neurologic/Psychiatric: Alert, Oriented x3, No Motor/Sensory Deficits, Normal Mood/Affect Skin: Normal Color, Warm/Dry Results/Procedures Lab Laboratory Tests 05/18/20 07:42 Patient resulted labs reviewed. Imaging: Reviewed Imaging Report Assessment/Plan Assessment and Plan Assess & Plan/Chief Complaint Pneumothorax Surgery following, appreciate assistance Thora-Vent in place, likely remove tomorrow Acute respiratory failure due to COVID-19 Decadron s/p convalescent plasma Oxygen requirement improving Home O2 study tomorrow Hypercoagulable state associated with COVID-19 D-dimer significantly elevated CTA negative for PE Transition to Eliquis PNA s/p Rocephin and Azithromycin HTN Continue Lisinopril and Metoprolol NSTEMI, type II Cardiology following, appreciate assistance Agitation, resolved Diagnosis/Problems Diagnosis/Problems (1) Pneumothorax Status: Acute (2) Acute respiratory failure due to COVID-19 Status: Acute (3) Hypercoagulable state associated with COVID-19 Status: Acute (4) PNA (pneumonia) Status: Resolved Resolution Date/Time: 05/16/20 @ 11:21 (5) HTN (hypertension) Status: Chronic Qualifiers: Hypertension type: essential hypertension Qualified Codes: I10 - Essential (primary) hypertension KINGS GARCIA MD May 18, 2020 14:23
[2020-05-18] MEDS: APIXABAN 5 MG (ELIQUIS) TABLET PO SCH (19:57)
[2020-05-18] MEDS: ALPRAZolam 0.5 MG (XANAX) TAB PO PRN (20:03)
[2020-05-19] MEDS: oxyCODONE/APAP 10/325MG (PERCOCET 10) TABLET PO PRN ×2 (04:10→10:19)
[2020-05-19] MEDS: CATHETER FLUSH 10 ML SYR IV SCH ×2 (04:12→08:39)
[2020-05-19 06:12] LABS: BASOPHILS % (AUTO) 0 % (0-10); EOSINOPHILS # (AUTO) 0.1 10^3/uL (0.0-0.3); EOSINOPHILS % (AUTO) 1 % (0-10); HEMATOCRIT 36 % (40-54); HEMOGLOBIN 11.8 g/dL (13.3-17.7); LYMPHOCYTES # (AUTO) 1.7 10^3/uL (1.0-4.0); LYMPHOCYTES % (AUTO) 19 % (12-44); MEAN CORPUSCULAR HEMOGLOBIN 29 pg (25-34); MEAN CORPUSCULAR HGB CONC 33 g/dL (32-36); MEAN CORPUSCULAR VOLUME 90 fL (80-99); MEAN PLATELET VOLUME 11.3 fL (9.0-12.2); MONOCYTES # (AUTO) 0.8 10^3/uL (0.0-1.0); MONOCYTES % (AUTO) 9 % (0-12); NEUTROPHILS # (AUTO) 6.1 10^3/uL (1.8-7.8); NEUTROPHILS % (AUTO) 68 % (42-75); PLATELET COUNT 391 10^3/uL (130-400); WHITE BLOOD COUNT 8.9 10^3/uL (4.3-11.0)
[2020-05-19 06:20] LABS: CHLORIDE 109 MMOL/L (98-107); POTASSIUM 3.8 MMOL/L (3.6-5.0); SODIUM 141 MMOL/L (135-145)
[2020-05-19 06:21] LABS: CALCIUM 8.6 MG/DL (8.5-10.1)
[2020-05-19 06:22] LABS: GLUCOSE 112 MG/DL (70-105)
[2020-05-19 06:23] LABS: CARBON DIOXIDE 23 MMOL/L (21-32)
[2020-05-19] MEDS: POTASSIUM CL 10MEQ/50ML IVPB 50 ML IV SCH (06:23)
[2020-05-19] MEDS: MAGNESIUM 1 GM/100 ML IVPB 100 ML IV SCH (06:24)
[2020-05-19 06:25] LABS: CREATININE SERUM 0.76 MG/DL (0.60-1.30); GFR ESTIMATED > 60
[2020-05-19 06:26] LABS: BUN/CREATININE RATIO 36
[2020-05-19 08:07] VITALS: BP 116/71
[2020-05-19] MEDS: ASPIRIN 81 MG CHEW (CHILDREN'S ASA) PO SCH (08:38)
[2020-05-19] MEDS: dexAMETHasone 6 MG TAB (DECADRON) PO SCH (08:38)
[2020-05-19] MEDS: PANTOPRAZOLE 40 MG (PROTONIX) TAB PO SCH (08:38)
[2020-05-19] MEDS: APIXABAN 5 MG (ELIQUIS) TABLET PO SCH (08:38)
[2020-05-19] MEDS: lisINopril 10 MG (PRINIVIL) TABLET PO SCH (08:38)
[2020-05-19] MEDS: meTOprolol TARTRATE 25 MG (LOPRESSOR) TABLET PO SCH (08:38)
--- NOTE | 2020-05-19 10:45 | Diagnostic Imaging Report ---
INDICATION: Pneumothorax, follow-up. TIME OF EXAM: 10:32 a.m. COMPARISON: Correlation is made with prior chest one day earlier. FINDINGS: Thora-Vent chest tube on the right remains in place. No significant pneumothorax is identified. Infiltrate or atelectasis in right perihilar region as well as both bases persist. There is no significant effusion. IMPRESSION: Stable chest and right chest tube. No pneumothorax is identified. Dictated by: Dictated on workstation # [id number]
--- NOTE | 2020-05-19 11:02 | NUR ---
pt dropped into the low 80's walking on RA. pt was placed on 3LNC after 30 secs of walking. after being placed on 3LNC pt SpO2 stayed at 93% and above. Addendum: 05/19/20 at 1103 by [place] RIVAS RT Amended: Links added.
[2020-05-19] MEDS ORDERED: APIX5TAB PO (12:52)
[2020-05-19] MEDS ORDERED: METO-333 PO (12:52)
[2020-05-19] MEDS ORDERED: LISI10TA2 PO (12:52)
[2020-05-19] MEDS ORDERED: HYDR-3820 PO (12:52)
--- NOTE | 2020-05-19 13:34 | Progress Note - Surgery ---
Subjective Time Seen by a Provider: 13:16 Subjective/Events-last exam Pt seen and examined, denies chest pain or SOB. States he is ready to go home. CXR today shows no PTX. Review of Systems General: No Chills, No Night Sweats Pulmonary: No Dyspnea, No Cough Cardiovascular: No: Chest Pain, Palpitations Gastrointestinal: No: Nausea, Vomiting, Abdominal Pain Objective Exam Vital Signs Date Time Temp Pulse Resp B/P (MAP) Pulse Ox O2 Delivery O2 Flow Rate FiO2 05/19/20 11:00 120 83 3.00 05/19/20 10:41 Nasal Cannula 3.00 05/19/20 08:35 Nasal Cannula 3.00 05/19/20 08:07 35.0 75 20 116/71 (86) 93 Nasal Cannula 3.00 05/19/20 00:52 35.8 68 18 103/55 (71) 94 Nasal Cannula 3.00 05/18/20 20:00 Nasal Cannula 3.00 05/18/20 16:45 36.7 66 20 117/56 (76) 94 Nasal Cannula 3.00 l I & O 05/19/20 07:00 Intake Total 1180 ml Output Total 1175 ml Balance 5 ml Capillary Refill : Less Than 3 Seconds General Appearance: No Apparent Distress, WD/WN HEENT: PERRL/EOMI Respiratory: Lungs Clear, Normal Breath Sounds, No Accessory Muscle Use, No Respiratory Distress Cardiovascular: Regular Rate, Rhythm, No Edema, No Murmur Gastrointestinal: non tender, soft, no organomegaly Extremity: Non Tender, No Pedal Edema Neurologic/Psychiatric: Alert, Oriented x3 Skin: Normal Color, Warm/Dry Results Lab Laboratory Tests 05/19/20 05:32: White Blood Count 8.9, Red Blood Count 4.01L, Hemoglobin 11.8L, Hematocrit 36L, Mean Corpuscular Volume 90, Mean Corpuscular Hemoglobin 29, Mean Corpuscular Hem oglobin Concent 33, Red Cell Distribution Width 12.9, Platelet Count 391, Mean Platelet Volume 11.3, Immature Granulocyte % (Auto) 3, Neutrophils (%) (Auto) 68, Lymphocytes (%) (Auto) 19, Monocytes (%) (Auto) 9, Eosinophils (%) (Auto) 1, Basophils (%) (Auto) 0, Neutrophils # (Auto) 6.1, Lymphocytes # (Auto) 1.7, Monocytes # (Auto) 0.8, Eosinophils # (Auto) 0.1, Basophils # (Auto) 0.0, Immature Granulocyte # (Auto) 0.2H, Sodium Level 141, Potassium Level 3.8, Chloride Level 109H, Carbon Dioxide Level 23, Anion Gap 9, Blood Urea Nitrogen 27H, Creatinine 0.76, Estimat Glomerular Filtration Rate > 60, BUN/Creatinine Ratio 36, Glucose Level 112H, Calcium Level 8.6 Microbiology 05/16/20 Gram Stain - Final, Resulted 05/16/20 Body Fluid Culture - Preliminary, Resulted No growth 05/08/20 MRSA Screen - Final, Complete MRSA not isolated Assessment/Plan Assessment/Plan Assessment/Plan Pneumothorax - none seen today on CXR Covid-19 Pneumonia Thoravent d/cd without difficulty and occlusive dressing placed, ok to send home. Can f/u in my office as needed. Remove dressing Friday am. IRENA DENSON DO May 19, 2020 13:34
--- NOTE | 2020-05-19 13:36 | NUR ---
CM/SS: Visited with pt via cell phone as to his plan for discharge related to oxygen needs Plan: Pt will return home with his spouse on oxygen Summary: Pt is given information about being on oxygen and about his scripts being faxed to his pharmacy. Initially it is thought that it is [facility] - however upon further discovery it is determined that the pharmacy and oxygen company is [facility] in [place]. Information is faxed to [facility]. Pt is also informed that this worker will call his and let her know when to orange picker pt. Telephone call to spouse Inga [phone] - she is informed of the discharge today and that she is able to orange picker the oxygen and bring it to the hospital for pt. She is informed to wait until this worker calls her back before she heads this way. She verbalizes understanding. Information is faxed to [facility] for scripts - one script is faxed and the oxygen information is sent. Call to [facility] - they have what they need for family to orange picker portable oxygen for pt as they come to orange picker pt. Pt will be discharges from the hospital today.
--- NOTE | 2020-05-19 15:43 | Discharge Summary ---
Discharge Summary Hospital Course Was the Problem List Reviewed?: Yes Problems/Dx: (1) Pneumothorax Status: Acute (2) Acute respiratory failure due to COVID-19 Status: Acute (3) Hypercoagulable state associated with COVID-19 Status: Acute (4) PNA (pneumonia) Status: Resolved (5) HTN (hypertension) Status: Chronic Qualifiers: Qualified Codes: I10 - Essential (primary) hypertension (6) Obesity Status: Chronic Hospital Course Date of Admission: May 08, 2020 at 20:35 Admission Diagnosis : Acute respiratory failure due to COVID-19 Family Physician/Provider: Sandy,Local Physician Date of Discharge: 05/19/20 Discharge Diagnosis: Acute respiratory failure due to COVID-19, pneumothorax, pneumonia, hypercoagulable state associated with COVID-19 Hospital Course: Mickey Emanuel is a 60 year old male who was admitted with acute respiratory failure due to COVID-19. He required high flow oxygen with Vapotherm. He was admitted to the intensive care unit. He was treated with Decadron and convalescent plasma. He also had a superimposed bacterial pneumonia for which she received IV antibiotics. He had a significantly elevated d-dimer, but CT showed no pulmonary embolism. He was started on Eliquis and will receive a one month supply on discharge due to hypercoagulable state associated with COVID-19. His course was also complicated by pneumothorax requiring chest tube. The pneumothorax resolved and his chest tube was removed. At the time of discharge, he was requiring 3 L with exertion. He was set up with home oxygen. He was discharged home in stable condition. He should follow-up with his primary care physician in a couple weeks. He will need to remain on quarantine until May 27. Labs and Pending Lab Test: Laboratory Tests 05/19/20 05:32: White Blood Count 8.9, Red Blood Count 4.01L, Hemoglobin 11.8L, Hematocrit 36L, Mean Corpuscular Volume 90, Mean Corpuscular Hemoglobin 29, Mean Corpuscular Hemoglobin Concent 33, Red Cell Distribution Width 12.9, Platelet Count 391, Mean Platelet Volume 11.3, Immature Granulocyte % (Auto) 3, Neutrophils (%) (Auto) 68, Lymphocytes (%) (Auto) 19, Monocytes (%) (Auto) 9, Eosinophils (%) (Auto) 1, Basophils (%) (Auto) 0, Neutrophils # (Auto) 6.1, Lymphocytes # (Auto) 1.7, Monocytes # (Auto) 0.8, Eosinophils # (Auto) 0.1, Basophils # (Auto) 0.0, Immature Granulocyte # (Auto) 0.2H, Sodium Level 141, Potassium Level 3.8, Chloride Level 109H, Carbon Dioxide Level 23, Anion Gap 9, Blood Urea Nitrogen 27H, Creatinine 0.76, Estimat Glomerular Filtration Rate > 60, BUN/Creatinine Ratio 36, Glucose Level 112H, Calcium Level 8.6 Microbiology 05/16/20 Gram Stain - Final, Resulted 05/16/20 Body Fluid Culture - Preliminary, Resulted No growth 05/08/20 MRSA Screen - Final, Complete MRSA not isolated Home Meds Active Lisinopril 10 Mg Tablet 10 Mg PO DAILY 30 Days Metoprolol Tartrate 25 Mg Tablet 25 Mg PO BID 30 Days Eliquis (Apixaban) 5 Mg Tablet 5 Mg PO BID 30 Days Hydrocodone-Acetamin 10-325 mg (Hydrocodone/Acetaminophen) 1 Each Tablet 1 Ea PO Q6H PRN 5 Days Reported Alprazolam 2 Mg Tablet 2 Mg PO TID PRN Prometh-Codein 6.25-10 mg/5 ml (Promethazine HCl/Codeine) 5 Ml Syrup 5 Ml PO Q8H PRN Assessment/Pt Instructions Take medications as prescribed. You're being started on Eliquis, a blood thinner, which she should take for the next month due to high risk of clots associated with COVID-19. You're have been started on blood pressure medications. You're being given a small prescription of pain medicine. Follow- up with your primary care physician in a couple weeks. Return with worsening shortness of breath or if you feel like you're getting worse. You will need to remain on quarantine until May 27 Discharge Planning: <30 minutes discharge planning Discharge Instructions Discharge Diet: Low Sodium Diet Activity as Tolerated: Yes Discharge Physical Examination Vital Signs Vital Signs Date Time Temp Pulse Resp B/P (MAP) Pulse Ox O2 Delivery O2 Flow Rate FiO2 05/19/20 11:00 120 83 3.00 05/19/20 10:41 Nasal Cannula 05/19/20 08:07 35.0 20 116/71 (86) 05/14/20 21:12 40 General Appearance: No Apparent Distress, Obese Respiratory: Lungs Clear, Normal Breath Sounds, No Respiratory Distress Cardiovascular: Regular Rate, Rhythm, No Edema, No Murmur Gastrointestinal: Normal Bowel Sounds, Non Tender, Soft Extremity: Normal Inspection, Non Tender, No Pedal Edema Skin: Normal Color, Warm/Dry Neurologic/Psychiatric: Alert, Oriented x3, No Motor/Sensory Deficits, Normal Mood/Affect Allergies: Coded Allergies: Penicillins (Verified Allergy, Severe, 05/08/20) Discharge Summary Date of Admission May 08, 2020 at 20:35 Date of Discharge Discharge Date: May 19, 2020 Discharge Time: 15:38 Admission Diagnosis Acute respiratory failure due to COVID-19 Discharge Diagnosis Pneumothorax, Acute respiratory failure due to COVID-19, Hypercoagulable state associated with COVID-19 (1) Pneumothorax Status: Acute (2) Acute respiratory failure due to COVID-19 Status: Acute (3) Hypercoagulable state associated with COVID-19 Status: Acute (4) PNA (pneumonia) Status: Resolved (5) HTN (hypertension) Status: Chronic Qualifiers: Qualified Codes: I10 - Essential (primary) hypertension KINGS GARCIA MD May 19, 2020 15:41
[2020-05-19 15:52] VITALS: BP 111/57
[2020-05-19 18:31] VITALS: BP 111/57
== END 2020-05-19 18:41 | disposition home or self-care (01) | DRG 177 ==
LOC: UNDOADMIN 20:10 → ICU 20:10 → CSD 05-09 12:35 → ICU 05-13 07:00 → 4TH 05-15 08:57
PROVIDERS: ADMIT Family Medicine; ATTEND Internal Medicine
PROC: 0W9930Z Drainage of Right Pleural Cavity with Drainage Device, Percutaneous Approach (ICD-10-PCS; principal; 2020-05-09)
PROC: XW13325 Transfusion of Convalescent Plasma (Nonautologous) into Peripheral Vein, Percutaneous Approach, New Technology Group 5 (ICD-10-PCS; 2020-05-09)
DX: U07.1 COVID-19 (principal); J96.01 Acute respiratory failure with hypoxia; J12.82 Pneumonia due to coronavirus disease 2019; I21.A1 Myocardial infarction type 2; J93.9 Pneumothorax, unspecified; D68.59 Other primary thrombophilia; I10 Essential (primary) hypertension; R41.0 Disorientation, unspecified; R45.1 Restlessness and agitation; I49.3 Ventricular premature depolarization; Z73.0 Burn-out; Z88.0 Allergy status to penicillin
CPT/HCPCS: 36415; 71045; 80048; 80053; 81000; 82805; 82962; 83605; 83735; 83880; 84100; 84145; 84484; 85025; 85379; 86900; 86901; 87070; 87081; 87205; 93005; 94664; 94760; 94761